=== PATIENT | female | born 1995 | race Hispanic/Latino ===

== ENCOUNTER 2018-06-21 12:13 | Emergency (ER) | payer OTHER, SELFPAY ==
[2018-06-21] MEDS ORDERED: Ibuprofen 800 MG TAB ONE (12:46)
[2018-06-21] MEDS ORDERED: Acetaminophen 500 MG TAB ONE (12:46)
[2018-06-21] MEDS ORDERED: Dexamethasone 10 MG/ML VIAL ONE (12:46)
== END 2018-06-21 12:53 | disposition home or self-care (01) ==
LOC: ERS 12:13
DX: J32.9 Chronic sinusitis, unspecified (principal); F41.9 Anxiety disorder, unspecified; F32.9 Major depressive disorder, single episode, unspecified; F17.210 Nicotine dependence, cigarettes, uncomplicated
CPT/HCPCS: 99283; J1100

== ENCOUNTER 2018-06-23 14:34 | Emergency (ER) | payer SELFPAY ==
[2018-06-23 15:14] LABS: Bilirubin Negative (Negative); Blood, Urine Negative (Negative); Clarity CLEAR (Clear); Glucose, Urine (Dipstick) Negative (Negative); Leukocyte Small (Negative); Nitrite Negative (Negative); Protein, Urine (Dipstick) Negative (Neg-Trace); Specific Gravity, Urine 1.025 (1.002-1.036); Urobilinogen 0.2 mg/dL (0.2-1.0); pH, Urine 5.5 (5.0-9.0)
[2018-06-23 15:16] LABS: Bacteria/HPF None Seen HPF (None Seen); Hyaline Casts/LPF 4-6 HYALINE CAST LPF (0-3 Hyaline); RBC/HPF 0-3 HPF (0-3)
[2018-06-23 15:17] LABS: Pregnancy Test - Urine (BHCG) Negative (Negative); Specific Gravity 1.025 (1.002-1.036)
[2018-06-23 15:18] LABS: Pregu Control Background? CLEAR/WHITE (CLR/WHITE); Pregu Control Bar Appear? YES (CONTROL BAR)
[2018-06-23 15:42] LABS: #Eosinphils 0.8 thou/uL (0.0-0.7); #Lymphocytes 2.6 thou/uL (1.20-3.40); #Monocytes 0.6 thou/uL (0.11-0.59); #Neutrophils 3.9 thou/uL (1.40-6.50); %Basophils 0.5 % (0.0-1.0); %Eosinophils 9.7 % (0.0-10.0); %Lymphocytes 32.7 % (28.0-48.0); %Monocytes 7.6 % (0.0-4.0); %Neutrophils 49.6 % (31.0-61.0); Hemoglobin 12.6 g/dL (12.0-16.0); Mean Corpuscular HGB CONC 34.1 g/dL (32.0-36.0); Mean Corpuscular Hemoglobin 32.2 pg (25.0-35.0); Mean Corpuscular Volume 94.5 fL (78.0-98.0); Platelet Count 217 thou/uL (130-400); RBC Distribution Width 12.2 % (11.5-14.5); Red Blood Cell (RBC) Count 3.92 mill/uL (4.00-5.20); White Blood Cell (WBC) Count 7.9 thou/uL (4.8-10.8)
[2018-06-23 15:59] LABS: ALT (SGPT) 9 U/L (8-55); AST (SGOT) 12 U/L (5-34); Albumin 3.9 g/dL (3.5-5.0); Alkaline Phosphatase 82 U/L (40-150); Anion Gap 11 mmol/L (10-20); BUN (Urea Nitrogen) 9 mg/dL (7.0-18.7); Bilirubin, Total 0.2 mg/dL (0.2-1.2); Calc. Creatinine Clearance 0 mL/min (70-130); Calcium 8.9 mg/dL (7.8-10.44); Carbon Dioxide 25 mmol/L (22-29); Chloride 108 mmol/L (98-107); Estimated GFR-MDRD Greater than 90; Globulin 2.8 g/dL (2.4-3.5); Glucose 65 mg/dL (70-105); Lipase 20 U/L (8-78); Potassium 3.7 mmol/L (3.5-5.1); Protein, Total 6.7 g/dL (6.0-8.3); Sodium 140 mmol/L (136-145)
[2018-06-23] MEDS ORDERED: Ondansetron HCl/PF 4 MG/2 ML Vial ONE (16:07)
[2018-06-23] MEDS ORDERED: Ketorolac Tromethamine 30 MG/ML VIAL ONE (16:07)
[2018-06-25 23:15] LABS: Chlamydia by PCR DETECTED (NotDetected); GC by PCR DETECTED (NotDetected)
== END 2018-06-23 17:40 | disposition home or self-care (01) ==
LOC: ERS 14:34
DX: N39.0 Urinary tract infection, site not specified (principal); N76.0 Acute vaginitis; F32.9 Major depressive disorder, single episode, unspecified; F41.9 Anxiety disorder, unspecified; F17.210 Nicotine dependence, cigarettes, uncomplicated
CPT/HCPCS: 36415; 80053; 81003; 81015; 81025; 83690; 85025; 87086; 87480; 87491; 87510; 87591; 87660; 96361; 96374; 96375; J1885; J2405

== ENCOUNTER → 2018-06-27 | Day surgery (SDC) | payer SELFPAY | LOC: ER/OP 16:46 | DX: A64 Unspecified sexually transmitted disease (principal); F41.9 Anxiety disorder, unspecified; F32.9 Major depressive disorder, single episode, unspecified; F17.210 Nicotine dependence, cigarettes, uncomplicated; Z88.0 Allergy status to penicillin; Z91.018 Allergy to other foods ==

== ENCOUNTER 2018-07-02 08:08 | Emergency (ER) | payer SELFPAY ==
[2018-07-02] MEDS ORDERED: cefTRIAXone\\ROCEPHIN 250 MG VIAL ONE (09:29)
[2018-07-02] MEDS ORDERED: Azithromycin 250 MG TAB ONE (09:29)
[2018-07-02] MEDS ORDERED: Lidocaine 1% (PF) 30 ML VIAL ONE (09:44)
== END 2018-07-02 10:30 | disposition home or self-care (01) ==
LOC: ERS 08:08
DX: R10.13 Epigastric pain (principal); T37.0X5A Adverse effect of sulfonamides, initial encounter; F41.9 Anxiety disorder, unspecified; F32.9 Major depressive disorder, single episode, unspecified; F17.210 Nicotine dependence, cigarettes, uncomplicated; Z79.899 Other long term (current) drug therapy
CPT/HCPCS: 93005; 96372; J0696; J2001

== ENCOUNTER 2019-05-03 18:00 | Inpatient (IN) | payer OTHER ==
[~2019-05-03 18:00] MED LIST: Bupivacaine 0.25% HCL 30 ML VIAL ONE
[2019-05-03 19:49] VITALS: BMI 46.2
[2019-05-03] MEDS ORDERED: hydrALAZINE 20 MG/ML VIAL SLOW IVP PRN (20:37)
[2019-05-03] MEDS ORDERED: Ondansetron PF 4 MG/2 ML Vial IVP PRN (20:37)
[2019-05-03] MEDS ORDERED: Promethazine HCl 25 MG/ML VIAL IM PRN (20:37)
[2019-05-03] MEDS: Lactated Ringer's 1,000 ML IV SCH (21:20)
[2019-05-03 21:34] LABS: Hemoglobin 13.6 g/dL (12.0-16.0); Mean Corpuscular Hemoglobin 33.2 pg (27.0-31.0); Mean Corpuscular Volume 92.2 fL (78.0-98.0); Mean Platelet Volume 7.9 fL (7.4-10.4); Platelet Count 226 thou/uL (130-400); RBC Distribution Width 11.7 % (11.5-14.5); Red Blood Cell (RBC) Count 4.09 mill/uL (4.20-5.40); White Blood Cell (WBC) Count 10.4 thou/uL (4.8-10.8)
[2019-05-03] MEDS: Misoprostol 100 MCG TAB VAG SCH (21:47)
[2019-05-03 22:21] LABS: Syphilis Antibody Nonreactive (Nonreactive); Syphilis Antibody Index 0.05 S/CO (<1.00 Non-Reactive)
--- NOTE | 2019-05-03 22:35 | PDOC.LDPN ---
Addendum - Attending - Attending Attestation Date/Time: 05/03/19 7241 I personally evaluated the patient and discussed the management with Dr. Benson. Her H&P is pending. I agree with the History, Examination, Assessment and Plan as dsicussed with any addition or exceptions noted below.
--- NOTE | 2019-05-03 22:52 | PDOC.FPRHP ---
- Allergies/Adverse Reactions Allergies Allergy/AdvReac Type Severity Reaction Status Date / Time amoxicillin Allergy Mild Hives Verified 05/03/19 19:42 - Home Medications Medication Instructions Recorded Confirmed Type Aspirin [Adult Low Dose Aspirin EC] 1 tablet PO DAILY 05/03/19 05/03/19 History Enoxaparin Sodium [Lovenox] 40 mg SC DAILY 05/03/19 05/03/19 History - History PMHx: PSHx: FHx: Social: - Vital signs BP: [] HR: [] RR: [] Tmax: [] Pox: []% on [] Wt: [] FMR H&P: Results - Labs Result Diagrams: 05/03/19 21: Lab results: WBC 10.4 thou/uL (4.8-10.8) 05/03/19 21:23 Hgb 13.6 g/dL (12.0-16.0) 05/03/19 21:23 Hct 37.7 % (36.0-47.0) 05/03/19 21:23 MCV 92.2 fL (78.0-98.0) 05/03/19 21:23 Plt Count 226 thou/uL (130-400) 05/03/19 21:23 FMR H&P: Upper Level - Plan Date/Time: 05/03/192251 I, [], have evaluated this patient and agree with findings/plan as outlined by validation intern resident. Pertinent changes/additions are listed here.
[2019-05-03 22:53] LABS: Hep B Surf Ag Non-Reactive S/CO (NonReactive)
--- NOTE | 2019-05-03 23:03 | PDOC.FPROB ---
FMR OB H&P: HPI - History of Present Illness Chief Complaint: IOL History of Present Illness: Nunu Polk is a 23 year old F @ 38.0 wks by 7.1 wk sono with CLAUDIA of 05/17/19 who presents to L&D for cytotec IOL for high risk 2/2 antiphospholipid syndrome. Patient has a history of HSV infection during this , which has been prophylactically treated with acyclovir starting in week 36. She denies any active lesions during . She has a history of chlamydia infection which has been treated and she has had a negative ROXANNE on 04/23. She has been followed by [facility] this and has routinely been getting BPP and NST's. Last was on 04/29/19. NST was reactive. BPP was 04/29. US showed cephalic presentation, ROSARIO of 7.19, anterior-fundal placenta, no previa. Patient has been taking lovenox 40 daily during per [facility] recs , who also recommend that she continues lovenox starting 6 hours after vaginal delivery. She has not taken lovenox 2 days leading up to induction per [facility] recs. She also has a history of THC use during but stopped during the 2nd trimester. Primary Care Physician: Artem/Brayan FMR OB H&P: Current - Care : 2 Para: 1 Gestational age: 38 wks Due date: 05/17/19 Dating Criteria: 7.1 wk sono Total weight gain: 25 lb Course/Complications: see HPI - OB Labs Blood type: A RH: positive Antibody Screen: negative HIV: negative RPR: negative HepBsAg: negative Rubella: immune Urine drug screen: not done Gonorrhea: negative Chlamydia: negative Pap Smear: 22 yr old-normal 1 hour gtt: 61 A1c: 4.7 GBS: negative H&H: 12.5/35.2 FMR OB H&P: History - Past Medical History PMH: Antiphospholipid syndrome Maternal Obesity Hx of HSV Hx of Chlamydia ROXANNE neg on 04/23/19 THC use in -quit in 2nd trimester - OB History OB History: first resulted in 26 wk stillbirth, autopsy showed acute retroplacental hematoma 50% - [employer] History [employer] History: LMP 08/01/18 periods in past have been normal, lasting 5 days, regular - Surgical History Sx History: tympanostomy R ear - Social History Social History: In stable relationship with boyfriend, not employed, lives with bf and family member - Family History Family History: HTN, HLD, DM2 FMR OB H&P: Medications - Current Home Medications: Medication Instructions Recorded Confirmed Type Aspirin [Adult Low Dose Aspirin EC] 1 tablet PO DAILY 05/03/19 05/03/19 History Enoxaparin Sodium [Lovenox] 40 mg SC DAILY 05/03/19 05/03/19 History Acyclovir 400 mg PO TID 05/04/19 05/04/19 History Vit 93/Iron Fum/Folic 1 tab PO DAILY 05/04/19 05/04/19 History [ Formula Tablet] Sertraline HCl [Zoloft] 25 mg PO DAILY 05/04/19 05/04/19 History Allergies/Adverse Reactions: Allergies Allergy/AdvReac Type Severity Reaction Status Date / Time amoxicillin Allergy Mild Hives Verified 05/03/19 19:42 FMR OB H&P: ROS - Review of Systems General: denies: fever/chills, weight/appetite/sleep changes, night sweats Eyes: denies: eye pain, vision changes ENT: denies: nasal congestion, rhinorrhea Cardiovascular: reports: edema. denies: chest pain, palpitation Respiratory: denies: cough, shortness of breath Gastrointestinal: denies: abdominal pain, cramping, nausea, vomiting Genitourinary (Female): denies: incontinence, dysuria, polyuria, vaginal discharge, vaginal pain, vaginal bleeding Musculoskeletal: denies: pain, stiffness, tenderness Neurologic: denies: numbness, syncope, seizures, weakness Integumentary: reports: itching Breast: denies: bumps, masses, skin changes Endocrine: denies: cold intolerance, polydipsia, polyuria Psychological: reports: depression, anxiety FMR OB H&P: Vital Signs - Maternal Vital signs: Vital Signs - First Documented Temp Pulse Resp BP 98.2 F 117 H 18 118/61 05/03/19 19:39 05/03/19 19:39 05/03/19 19:39 05/03/19 19:39 - Heart Tones Baseline: 135 Variability: moderate Acceleration: absent Deceleration: absent Category: category 1 FMR OB H&P: Physical Exam - Physical Exam General: NAD, awake, alert and oriented HEENT: normocephalic and atraumatic, EOMI, MMM Neck: supple, FROM Chest: non-tender to palpation, no lesions Heart: RRR, normal S1/S2, no murmurs/rubs/gallops General: CTAB, no respiratory distress, good air movement, no rales/rhonchi Abdomen: soft, gravid, non-tender Musculoskeletal: pulses present, FROM in all four extremities Neurological: cranial nerves II through XII intact, sensation to pain,touch and proprioception grossly normal Skin: good tugor, capillary refill <2 seconds Lymphatic: no unusual bruising or bleeding, no purpura, no petechia Psychiatric: intact recent and remote memory, good judgement and insight, normal mood and affect FMR OB H&P: Results - Labs Lab results: Laboratory Results - last 24 hr 05/03/19 05/03/19 05/03/19 21:23 21:23 21:23 WBC 10.4 RBC 4.09 L Hgb 13.6 Hct 37.7 MCV 92.2 MCH 33.2 H MCHC 36.0 RDW 11.7 Plt Count 226 MPV 7.9 Syphilis IgG/IgM Ab Nonreactive Blood Type O POSITIVE Antibody Screen NEGATIVE FMR OB H&P: A/P - Problem List (1) Intrauterine Current Visit: Yes Status: Acute Code(s): Z34.90 - ENCNTR FOR SUPRVSN OF NORMAL , UNSP, UNSP TRIMESTER (2) Antiphospholipid antibody syndrome complicating Current Visit: Yes Status: Acute Code(s): O99.119 - OTH DIS OF BLD/BLD-FORM ORG/IMMUN MECHNSM COMP PREG,UNSP TRI; D68.61 - ANTIPHOSPHOLIPID SYNDROME (3) hsv1 in Current Visit: Yes Status: Acute (4) Chlamydia infection affecting in first trimester Current Visit: Yes Status: Acute Code(s): O98.811 - OTH MATERNAL INFEC/ PARASTC DISEASES COMP PREG, FIRST TRI; A74.9 - CHLAMYDIAL INFECTION, UNSPECIFIED (5) thc use in Current Visit: Yes Status: Acute (6) Maternal obesity affecting , antepartum Current Visit: Yes Status: Acute Code(s): O99.210 - OBESITY COMPLICATING , UNSPECIFIED TRIMESTER (7) History of stillbirth Current Visit: Yes Status: Acute Code(s): Z87.59 - PERSONAL HISTORY OF COMP OF PREG, CHLDBRTH AND THE PUERP Disposition: 1) IUP: high risk - cytotec IOL for antiphospholipid syndrome - initial check was 3 - cytotec started at 2147 - pt does not desire epidural at this time - OB labs as above 2) Antiphospholipid Syndrome affecting - high risk , followed by [facility] - has taken lovenox and ASA during - held lovenox 2 days prior to induction per [facility] recs - recs to continue lovenox 6 hr if vaginal delivery per [facility] 3) Hx of Chlamydia in - ROXANNE negative on 04/23/19 4) Hx of HSV1 during - prophylactically treated with acyclovir starting at 36 wks - no active lesions 5) THC use - stopped using in 2nd trimester 6) Maternal obesity - weight gain of 25 lbs during this 7) hx of stillbirth in first - at 26 wks, autopsy as above Dispo: Will initiate cytotec IOL with q4h checks Discussion: Date/Time: 05/03/19 3291 This H&P was discussed with [] and [] who agree with the above documentation and plan. Addendum - Attending - Attending Attestation Date/Time: 05/04/19 8681 I personally evaluated the patient and discussed the management with Dr. Benson at time of admission last night. See separate note. I agree with the History, Examination, Assessment and Plan documented above with any addition or exceptions noted below.
--- NOTE | 2019-05-04 02:28 | PDOC.LDPN ---
Labor & Delivery Progress Note - Subjective Subjective: comfortable, painful contractions (reports she can feel them, but also is sleeping through them) - Objective Vital signs reviewed and normal: yes General: resting Uterine fundus: non tender SVE: @ 0140 2 FHT: category 1 [place] contractions every: 2min - Assessment (1) Intrauterine Code(s): Z34.90 - ENCNTR FOR SUPRVSN OF NORMAL , UNSP, UNSP TRIMESTER Current Visit: Yes Status: Acute (2) Antiphospholipid antibody syndrome complicating Code(s): O99.119 - OTH DIS OF BLD/BLD-FORM ORG/IMMUN MECHNSM COMP PREG,UNSP TRI ; D68.61 - ANTIPHOSPHOLIPID SYNDROME Current Visit: Yes Status: Acute (3) hsv1 in Current Visit: Yes Status: Acute (4) Chlamydia infection affecting in first trimester Code(s): O98.811 - OTH MATERNAL INFEC/PARASTC DISEASES COMP PREG, FIRST TRI; A74.9 - CHLAMYDIAL INFECTION, UNSPECIFIED Current Visit: Yes Status: Acute (5) thc use in Current Visit: Yes Status: Acute (6) Maternal obesity affecting , antepartum Code(s): O99.210 - OBESITY COMPLICATING , UNSPECIFIED TRIMESTER Current Visit: Yes Status: Acute (7) History of stillbirth Code(s): Z87.59 - PERSONAL HISTORY OF COMP OF PREG, CHLDBRTH AND THE PUERP Current Visit: Yes Status: Acute -: 1) IUP: high risk - cytotec IOL for antiphospholipid syndrome - initial check was 3 - cytotec started at 2147 - pt does not desire epidural at this time - recheck at 0140 was 2 - Cat 1 Strip 2) Antiphospholipid Syndrome affecting - high risk , followed by [facility] - has taken lovenox and ASA during - held lovenox 2 days prior to induction per [facility] recs - recs to continue lovenox 6 hr if vaginal delivery per [facility] 3) Hx of Chlamydia in - ROXANNE negative on 04/23/19 4) Hx of HSV1 during - prophylactically treated with acyclovir starting at 36 wks - no active lesions 5) THC use - stopped using in 2nd trimester 6) Maternal obesity - weight gain of 25 lbs during this 7) hx of stillbirth in first - at 26 wks, autopsy as above Dispo: Raj every 2 minutes; will hold cytotec for now and recheck in 4 hours
--- NOTE | 2019-05-04 06:26 | PDOC.LDPN ---
Labor & Delivery Progress Note - Subjective Subjective: comfortable, painful contractions - Objective Vital signs reviewed and normal: yes General: resting, breathing through contractions Uterine fundus: non tender SVE: /-2 FHT: category 1 [place] contractions every: 2-5min - Assessment (1) Intrauterine Code(s): Z34.90 - ENCNTR FOR SUPRVSN OF NORMAL , UNSP, UNSP TRIMESTER Current Visit: Yes Status: Acute (2) Antiphospholipid antibody syndrome complicating Code(s): O99.119 - OTH DIS OF BLD/BLD-FORM ORG/IMMUN MECHNSM COMP PREG,UNSP TRI ; D68.61 - ANTIPHOSPHOLIPID SYNDROME Current Visit: Yes Status: Acute (3) hsv1 in Current Visit: Yes Status: Acute (4) Chlamydia infection affecting in first trimester Code(s): O98.811 - OTH MATERNAL INFEC/PARASTC DISEASES COMP PREG, FIRST TRI; A74.9 - CHLAMYDIAL INFECTION, UNSPECIFIED Current Visit: Yes Status: Acute (5) thc use in Current Visit: Yes Status: Acute (6) Maternal obesity affecting , antepartum Code(s): O99.210 - OBESITY COMPLICATING , UNSPECIFIED TRIMESTER Current Visit: Yes Status: Acute (7) History of stillbirth Code(s): Z87.59 - PERSONAL HISTORY OF COMP OF PREG, CHLDBRTH AND THE PUERP Current Visit: Yes Status: Acute -: 1) IUP: high risk - cytotec IOL for antiphospholipid syndrome - patient does not desire an epidural at this time - initial check was -3 - cytotec started at 2147 - recheck at 0140 was /-2 - recheck at 0620 was /-2 - contractions every 2-5min - another cytotec ordered - Cat 1 Strip 2) Antiphospholipid Syndrome affecting - high risk , followed by [facility] - has taken lovenox and ASA during - held lovenox 2 days prior to induction per [facility] recs - recs to continue lovenox 6 hr if vaginal delivery per [facility] 3) Hx of Chlamydia in - ROXANNE negative on 04/23/19 4) Hx of HSV1 during - prophylactically treated with acyclovir starting at 36 wks - no active lesions 5) THC use - stopped using in 2nd trimester 6) Maternal obesity - weight gain of 25 lbs during this 7) hx of stillbirth in first - at 26 wks, autopsy as above Dispo: Raj every 2-5 minutes; 2nd cytotec dose and will recheck in 4 hours
[2019-05-04] MEDS: Misoprostol 100 MCG TAB VAG SCH ×3 (06:38→15:40)
[2019-05-04] MEDS ORDERED: Misoprostol 100 MCG TAB ONE (11:10)
[2019-05-04] MEDS ORDERED: Butorphanol Tartrate 1 MG/ML VIAL SLOW IVP PRN (11:27)
--- NOTE | 2019-05-04 11:33 | PDOC.LDPN ---
Labor & Delivery Progress Note - Subjective Subjective: comfortable, other (feeling some ctx) - Objective Vital signs reviewed and normal: yes General: NAD Uterine fundus: non tender SVE: No lesions concerning for active herpes infection Dilation: 1, unchanged FHT: category 1, acceleration absent [place] contractions every: 3-4 Other exam findings: Membranes intact. Plan: continue plan of care, other (cytotec 25 placed. Continue induction.) Addendum - Attending - Attending Attestation Date/Time: 05/04/19 9825 I personally evaluated the patient and discussed the management with Dr. Robbins I agree with the History, Examination, Assessment and Plan documented above with any addition or exceptions noted below. 23 yo female at 38.0 wks by 7.1 wk sono admitted for IOL 2/2 APLS and hx of stillbirth Patient doing well. Cat 1 tracing. Cervix still unfavorable on exam. Miso placed. 1. sIUP: IOB/anatomy/2T/3T reviewed. GBS negative. 2. APLS: Confirmed by 2 serology testing and Obstetrical event. No personal VTEs. Has been on ppx anticoagulation during and antiplatelet for prevention. Risk for preE. Monitor closely. Restart ppx after delivery for 6 wks. Follow up out patient with heme. 3. BMI 46: Lifestyle modifications. 4. hx of stillbirth: HSV1 in placenta path. Clots noted in placenta and cord per patient. Unable to review path. 5. hx of HSV1: Patient unsure of location of outbreak. On ppx. Low likelihood of genital recurrence but due to history caution used. Negative speculum exam for suspicious lesions. 6. HDS: No active infection 7. hx of MMD on SSRI: Monitor for complications. Monitor for progressive ppd. 8. hx of CT this : Asymptomatic. Treated. ROXANNE negative. PPX after delivery. 9. THC use in 1T: UDS on mom not obtained. Will monitor infant. Denies use since 1T which was during a period she did not know she was . 10. PCN allergy Continue current care. Rhoda
[2019-05-04] MEDS: Lactated Ringer's 1,000 ML IV SCH ×3 (11:58→23:05)
[2019-05-04] MEDS ORDERED: NS / Oxytocin 40 units/1000ml 1,000 ML IV PRN (20:40)
[2019-05-04] MEDS ORDERED: Lidocaine 1% (PF) 30 ML VIAL SC PRN (20:40)
[2019-05-04] MEDS ORDERED: NS w/ Oxytocin 10 units 500 ML IV SCH ×2 (20:45)
--- NOTE | 2019-05-04 20:46 | PDOC.LDPN ---
Labor & Delivery Progress Note - Subjective Subjective: comfortable - Objective Vital signs reviewed and normal: yes General: NAD Dilation: 3 Effacement: 50% Station: -2 FHT: category 1 [place] contractions every: irregular Procedures: balloon placed for mechanical dilation - Assessment (1) Third trimester Code(s): Z34.93 - ENCNTR FOR SUPRVSN OF NORMAL PREG, UNSP, THIRD TRIMESTER Status: Acute (2) Antiphospholipid antibody syndrome complicating Code(s): O99.119 - OTH DIS OF BLD/BLD-FORM ORG/IMMUN MECHNSM COMP PREG,UNSP TRI ; D68.61 - ANTIPHOSPHOLIPID SYNDROME Status: Acute (3) Chlamydia infection affecting in first trimester Code(s): O98.811 - OTH MATERNAL INFEC/PARASTC DISEASES COMP PREG, FIRST TRI; A74.9 - CHLAMYDIAL INFECTION, UNSPECIFIED Status: Acute (4) History of stillbirth Code(s): Z87.59 - PERSONAL HISTORY OF COMP OF PREG, CHLDBRTH AND THE PUERP Status: Acute (5) Intrauterine Code(s): Z34.90 - ENCNTR FOR SUPRVSN OF NORMAL , UNSP, UNSP TRIMESTER Status: Acute (6) Maternal obesity affecting , antepartum Code(s): O99.210 - OBESITY COMPLICATING , UNSPECIFIED TRIMESTER Status: Acute (7) hsv1 in Status: Acute (8) thc use in Status: Acute -: 23 yo @38wks admitted for IOL 2/2 APS. #sIUP, third trimester #APS #hx of chlamydia, ROXANNE neg #THC use in #obesity #hx of HSV, no active lesions #hx of stillbirth -Balloon placed. Will start pitocin in 1-2 hours pending toleration of balloon. -cervical check q4h pending strip MD Aditi, PGY-3 Addendum - Attending - Attending Attestation Date/Time: 05/04/192058 I personally evaluated the patient and discussed the management with Dr. Valentine I agree with the History, Examination, Assessment and Plan documented above with any addition or exceptions noted below. 23 yo female at 38.0 wks by 7.1 wk sono admitted for IOL 2/2 APLS and hx of stillbirth Patient doing well. Cat 1 tracing. Cervix still unfavorable. s/p miso x4. Balloon placed. Will add pitocin. 1. sIUP: IOB/anatomy/2T/3T reviewed. GBS negative. 2. APLS: Confirmed by 2 serology testing and Obstetrical event. No personal VTEs. Has been on ppx anticoagulation during and antiplatelet for prevention. Risk for preE. Monitor closely. Restart ppx after delivery for 6 wks. Follow up out patient with heme. 3. BMI 46: Lifestyle modifications. 4. hx of stillbirth: HSV1 in placenta path. Clots noted in placenta and cord per patient. Unable to review path. 5. hx of HSV1: Patient unsure of location of outbreak. On ppx. Low likelihood of genital recurrence but due to history caution used. Negative speculum exam for suspicious lesions. 6. HDS: No active infection 7. hx of MMD on SSRI: Monitor for complications. Monitor for progressive ppd. 8. hx of CT this : Asymptomatic. Treated. ROXANNE negative. PPX infant after delivery. 9. THC use in 1T: UDS on mom not obtained. Will monitor . Denies use since 1T which was during a period she did not know she was . 10. PCN allergy Continue current care. Rhoda
[2019-05-04] MEDS ORDERED: Fentanyl 4 mcg/Bup 0.1% Cadd 100 ML ONE (21:46)
[2019-05-04] MEDS ORDERED: diphenhydrAMINE 50 MG/ML VIAL IVP PRN (22:32)
[2019-05-04] MEDS ORDERED: Naloxone HCl 0.4 mg/ml Vial IVP PRN ×2 (22:32)
[2019-05-04] MEDS ORDERED: ePHEDrine/0.9% NaCl/PF SYRINGE 50 mg/10 ml SLOW IVP PRN (22:32)
[2019-05-04] MEDS ORDERED: Promethazine HCl 25 MG/ML VIAL IM PRN (22:32)
[2019-05-04] MEDS ORDERED: Ondansetron PF 4 MG/2 ML Vial IVP PRN (22:32)
[2019-05-04] MEDS ORDERED: Lactated Ringer's 500 ML IV PRN (22:32)
[2019-05-04] MEDS ORDERED: Fentanyl 4 mcg/Bupivacaine 0.1% Cassette 100 ML EPIDURAL SCH (22:45)
[2019-05-04] MEDS ORDERED: Communication Order-Pharmacy FS SCH (22:45)
--- NOTE | 2019-05-05 03:44 | PDOC.LDPN ---
Labor & Delivery Progress Note - Subjective Subjective: comfortable, no concerns - Objective Vital signs reviewed and normal: yes General: NAD Dilation: 6 Effacement: 90% Station: -1 FHT: category 2 (late decelerations resolved with maternal repositioning, 1 episode of bradycarida- recovered), variable decelerations, late decelerations, variability present IUPC placed: yes FSE placed: yes Resuscitative measures: maternal oxygen, maternal IV fluids, maternal position change - Assessment (1) Antiphospholipid antibody syndrome complicating Code(s): O99.119 - OTH DIS OF BLD/BLD-FORM ORG/IMMUN MECHNSM COMP PREG,UNSP TRI ; D68.61 - ANTIPHOSPHOLIPID SYNDROME Current Visit: Yes Status: Acute (2) Intrauterine Code(s): Z34.90 - ENCNTR FOR SUPRVSN OF NORMAL , UNSP, UNSP TRIMESTER Current Visit: Yes Status: Acute -: Antiphospholipid complicated Plan of care: continue to monitor, hold pitocin for now due to Cat II strip, position change, fluid resuscitation
--- NOTE | 2019-05-05 03:59 | PDOC.FM ---
- Objective Vital Signs & Weight: Weight Weight 126.099 kg Result Diagrams: 05/03/19 21:23 Dx/Plan (1) Intrauterine Code(s): Z34.90 - ENCNTR FOR SUPRVSN OF NORMAL , UNSP, UNSP TRIMESTER Status: Acute (2) Antiphospholipid antibody syndrome complicating Code(s): O99.119 - OTH DIS OF BLD/BLD-FORM ORG/IMMUN MECHNSM COMP PREG,UNSP TRI ; D68.61 - ANTIPHOSPHOLIPID SYNDROME Status: Acute (3) hsv1 in Status: Acute (4) Chlamydia infection affecting in first trimester Code(s): O98.811 - OTH MATERNAL INFEC/PARASTC DISEASES COMP PREG, FIRST TRI; A74.9 - CHLAMYDIAL INFECTION, UNSPECIFIED Status: Acute (5) thc use in Status: Acute (6) Maternal obesity affecting , antepartum Code(s): O99.210 - OBESITY COMPLICATING , UNSPECIFIED TRIMESTER Status: Acute (7) History of stillbirth Code(s): Z87.59 - PERSONAL HISTORY OF COMP OF PREG, CHLDBRTH AND THE PUERP Status: Acute Addendum - Attending - Attending Attestation Date/Time: 05/05/19 0359 Reviewed FHT/[place] tracing. Cat 1 until about 0230 this morning when became Cat 2 then recovered to Cat 1. Pitocin hs been started/stopped twice during the past 90 minutes for Cat 2 tracing. Position changes and fluid bolus measures taken. Discussed fidnigns with patient as well as care plan depending on FHT tracing. If FHT recovers to Cat 1 then can see how she progresses and restart pit if needed. If FHT persist as Cat 2 then need to consider delivery. Discussed risks/benefits/indications/alternatives for delivery. She agreeable to if indicated. Nunu and her mother appreciate their care and communication.
[2019-05-05] MEDS: Lactated Ringer's 1,000 ML IV SCH (04:03)
--- NOTE | 2019-05-05 05:31 | PDOC.OPDEL ---
OB Operative/Delivery Note Delivery Dr/Surgeon: Brayan Zavala Assist: Attending: Dr. Bui Pre-Delivery Diagnosis: medically indicated induction (APS) Procedure/Post Delivery Dx: spontaneous vaginal delivery Weeks gestation: 38 Anesthesia: epidural - Findings B Sex: female - 1 min: 8 - 5 min: 9 - Additional Findings/Plan Placenta delivered: spontaneous Repaired Obstetrical Laceration: none Estimated blood loss: 250 Compilations/Other Findings: Delivering Physician: Dr. Serge Mcgill MD, PGY-[address] Opal Schmidt DO, PGY -3 Attending: Dr. Bui Procedure: Spontaneous Vaginal Delivery Anesthesia: epidural, Local for Repair QBL:222ml Pre-op Diagnosis: 1. Term intrauterine 2. Hx of HSV 3. APS 4. Hx of chlamydia 5. Hx of THC use in 1T 6. Obesity 7 Hx of demise Post-op Diagnosis: 1. Term intrauterine , delivered 2. Hx of HSV 3. APS 4. Hx of chlamydia 5. Hx of THC use in 1T 6. Obesity 7. Hx of demise Indications: A 23y/o female @38.2wks presents to L&D for induction due to APS. Delivery Note: This is 23 yo @38.2wks who delivered a viable F infant at 0505. Following an uneventful antepartum course, a vigorous female was delivered over an intact perineum in the occipitoanterior position. Anterior Shoulder and then remainder of the body delivered. No nuchal cord. Terminal meconium present. The head was held down and mouth and nares were bulb suctioned. Cord clamped (after delayed cord clamping) and cut and cord blood collected. Placenta delivered intact (in the [place] presentation) with a 3 vessel cord noted. Fundal massage was performed and the fundus was firm. The cervix and vagina were inspected and found to be free of lacerations. Infant went to nursery in good condition for routine care. Apgars were 8/9 at 1 & 5 minutes, respectively. Patient tolerated delivery well and went to after routine recovery/care. Addendum - Attending - Attending Attestation Date/Time: 05/05/191923 I personally supervised and assisted with the delivery.
[2019-05-05] MEDS ORDERED: Lanolin Ointment 7 GM TUBE TOP PRN (08:28)
[2019-05-05] MEDS ORDERED: Benzocaine-Menthol 82.5 ML CAN TOP PRN (08:28)
[2019-05-05] MEDS ORDERED: Misoprostol 200 MCG TAB VAG PRN (08:28)
[2019-05-05] MEDS ORDERED: diphenhydrAMINE 25 MG CAP PO PRN (08:28)
[2019-05-05] MEDS ORDERED: Bisacodyl 10 MG SUPP PR PRN (08:28)
[2019-05-05] MEDS ORDERED: Preparation H Ointment 28 GM TUBE PR PRN (08:28)
[2019-05-05] MEDS ORDERED: Ibuprofen 800 MG TAB PO SCH (08:28)
[2019-05-05] MEDS ORDERED: Adacel (T-DAP) 0.5 ML SYRINGE IM ONE (08:28)
[2019-05-05] MEDS ORDERED: Milk Of Magnesia 30 ML UDCUP PO PRN (08:28)
[2019-05-05] MEDS ORDERED: NS / Oxytocin 40 units/1000ml 1,000 ML IV SCH (08:28)
[2019-05-05] MEDS ORDERED: hydrALAZINE 20 MG/ML VIAL SLOW IVP PRN (08:28)
[2019-05-05] MEDS: Misoprostol 100 MCG TAB VAG SCH (08:33)
[2019-05-05] MEDS ORDERED: Ferrous Sulfate 325 MG TAB PO SCH (08:45)
[2019-05-05] MEDS: Docusate Calcium (SURFAK) 240 MG CAP PO SCH ×2 (08:56→21:21)
[2019-05-05] MEDS: Prenatal Vitamin 1 TAB PO SCH (08:56)
[2019-05-05] MEDS ORDERED: Prenatal Vitamin 1 TAB PO SCH (09:00)
[2019-05-05] MEDS: Enoxaparin Sodium 40 MG/0.4 ML SYRINGE SC SCH (10:45)
[2019-05-05] MEDS: Ferrous Sulfate 325 MG TAB PO SCH (17:06)
[2019-05-05] MEDS: Ibuprofen 800 MG TAB PO SCH (17:12)
[2019-05-05] MEDS ORDERED: HYDROcodone/Acetaminophen 10/325 mg Tablet PO SCH (20:47)
[2019-05-06] MEDS ORDERED: diphenhydrAMINE 50 MG/ML VIAL IVP SCH (01:15)
[2019-05-06] MEDS ORDERED: Metoclopramide HCl 10 MG/2 ML VIAL IVP SCH (01:15)
[2019-05-06] MEDS ORDERED: diphenhydrAMINE 25 MG CAP PO PRN (01:18)
[2019-05-06] MEDS: Ibuprofen 800 MG TAB PO SCH ×3 (01:38→16:50)
[2019-05-06] MEDS ORDERED: Metoclopramide HCl 10 MG TAB PO SCH (01:45)
[2019-05-06 04:28] LABS: #Eosinphils 0.4 thou/uL (0.0-0.7); #Lymphocytes 3.6 thou/uL (1.20-3.40); #Monocytes 0.6 thou/uL (0.11-0.59); #Neutrophils 7.5 thou/uL (1.40-6.50); %Basophils 0.2 % (0.0-1.0); %Eosinophils 3.1 % (0.0-10.0); %Lymphocytes 29.9 % (21.0-51.0); %Monocytes 4.9 % (0.0-10.0); %Neutrophils 61.9 % (42.0-75.0); Mean Corpuscular HGB CONC 35.1 g/dL (32.0-36.0); Mean Corpuscular Hemoglobin 32.8 pg (27.0-31.0); Mean Corpuscular Volume 93.3 fL (78.0-98.0); Mean Platelet Volume 7.2 fL (7.4-10.4); Platelet Count 169 thou/uL (130-400); RBC Distribution Width 11.7 % (11.5-14.5); Red Blood Cell (RBC) Count 3.37 mill/uL (4.20-5.40); White Blood Cell (WBC) Count 12.1 thou/uL (4.8-10.8)
[2019-05-06] MEDS ORDERED: Sodium Chloride 0.9% 10 ML ONE (05:34)
[2019-05-06] MEDS ORDERED: Sodium Chloride 0.9% 500 ML IV SCH (06:15)
[2019-05-06] MEDS ORDERED: HYDROcodone/Acetaminophen 5/325 mg Tablet PO SCH (06:15)
--- NOTE | 2019-05-06 09:01 | PDOC.PP ---
Post Progress Note Post Day #: 1 Subjective: Complaining overnight and currently of severe headache which is not relieved w/ motrin and gets better w/ laying flat. She is currently in the dark, which is helping. Denies vision changes. +neck stiffness. PO intake tolerated: yes Flatus: yes Ambulation: yes Vital Signs (12 hours) Temp Pulse Resp BP Pulse Ox 05/06/19 08:26 98.1 F 61 16 103/56 L 100 05/06/19 04:30 97.5 F L 83 20 100/58 L 05/06/19 00:10 97.6 F 67 20 123/84 05/05/19 21:45 62 16 111/64 96 Weight Weight 126.099 kg - Physical Examination Deviation from normal: appears and talks w/ soft, tired voice. Cardiovascular: no m/r/g, RRR Respiratory: clear to auscultation bilaterally Abdominal: + bowel sounds, lochia (downtrending.), no distention, appropriately TTP Fundus firm & at: below umbilicus Psychiatric: A&Ox3, normal affect Result Diagrams: 05/06/19 04:15 Additional Labs: Post Labs Blood Type O POSITIVE 05/03/19 21:23 Hep Bs Antigen Non-Reactive S/CO (NonReactive) 05/03/19 21:23 (1) state Code(s): Z39.2 - ENCOUNTER FOR ROUTINE FOLLOW-UP Status: Acute (2) Antiphospholipid antibody syndrome complicating Code(s): O99.119 - OTH DIS OF BLD/BLD-FORM ORG/IMMUN MECHNSM COMP PREG,UNSP TRI ; D68.61 - ANTIPHOSPHOLIPID SYNDROME Status: Acute (3) History of stillbirth Code(s): Z87.59 - PERSONAL HISTORY OF COMP OF PREG, CHLDBRTH AND THE PUERP Status: Acute (4) hsv1 in Status: Acute (5) thc use in Status: Acute - Assessment/Plan 23-yo G2 now P1101 on floor: - state s/p on 05/05 at 0505 * PPD #1, afebrile, low BP of 100/58 * PP Hgb 11.0 * Appropriate WBC * Minimal attempts to breastfeed, consult placed. Junction taking mostly bottle feeds. * Continue routine cares - Severe headache * Headache monitoring, continue pain management. No Pre-E symptoms, BP not elevated * Anesthesia to evaluate for spinal headache, possible blood patch. Appreciate recs. 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 Dispo: continue to monitor on . Likely d/c tomorrow, pending TBili @ 36 hours. Ann Robbins MD PGY1 Addendum - Attending - Attending Attestation Date/Time: 05/06/19 1302 I personally evaluated the patient and discussed the management with Dr. Robbins I agree with the History, Examination, Assessment and Plan documented above with any addition or exceptions noted below. 23 yo now female s/p on 05/05/19 at 0505 PPD#1 Doing well. However has spinal headache. Improves with positioning. No blood patch at this time. Breast feeding. Lochia appropriate. VS, labs reviewed. Agree with resident PE Funds firm. NT. Below umbilicus 1. s/p : Continue routine care. 2. APLS: Confirmed by 2 serology testing and Obstetrical event. No personal VTEs. Has been on ppx anticoagulation during and antiplatelet for prevention. Risk for preE. Monitor closely. Lovenox restarted. Would consider trending antiXa levels due to morbid obesity. Continue for 6 wks. Follow up out patient with heme. 3. BMI 46: Lifestyle modifications. 4. hx of stillbirth: HSV1 in placenta path. Clots noted in placenta and cord per patient. Unable to review path. 5. hx of HSV1: Patient unsure of location of outbreak. On ppx. Low likelihood of genital recurrence but due to history caution used. Negative speculum exam for suspicious lesions. 6. HDS: No active infection 7. hx of MMD on SSRI: Monitor for complications. Monitor for progressive ppd. Currently stable. Breast feeding. 8. hx of CT this : Asymptomatic. Treated. ROXANNE negative. PPX after delivery. 9. THC use in 1T: UDS on mom not obtained. Will monitor infant. Denies use since 1T which was during a period she did not know she was . 10. PCN allergy Continue current care. Rhoda
[2019-05-06] MEDS: Ferrous Sulfate 325 MG TAB PO SCH ×2 (09:25→17:11)
[2019-05-06] MEDS: Docusate Calcium (SURFAK) 240 MG CAP PO SCH ×2 (09:26→20:34)
[2019-05-06] MEDS: Prenatal Vitamin 1 TAB PO SCH (09:26)
[2019-05-06] MEDS: Enoxaparin Sodium 40 MG/0.4 ML SYRINGE SC SCH (12:26)
[2019-05-06] MEDS: Acetaminophen 325 MG TAB PO PRN ×3 (12:30→20:34)
[2019-05-07] MEDS: Acetaminophen 325 MG TAB PO PRN ×3 (00:22→11:31)
[2019-05-07] MEDS: Ibuprofen 800 MG TAB PO SCH ×2 (00:23→08:46)
[2019-05-07 08:12] VITALS: BP 108/60; TEMP 98.2
--- NOTE | 2019-05-07 08:36 | PDOC.PP ---
Post Progress Note Post Day #: 2 Subjective: 23 yo -->1101 s/p on 05/05. Doing well. Voiding, passing gas, tolerating normal diet, ambulating, denies pain this morning. PO intake tolerated: yes Flatus: yes Ambulation: yes Vital Signs (12 hours) Temp Pulse Resp BP BP Pulse Ox 05/07/19 08:11 98.2 F 72 20 108/60 100 05/07/19 04:15 97.9 F 67 20 96/51 L 05/07/19 00:30 98.2 F 72 20 114/64 Weight Weight 126.099 kg - Physical Examination General: NAD Cardiovascular: no m/r/g, RRR Respiratory: clear to auscultation bilaterally Abdominal: + bowel sounds (nontender to palpation) Fundus firm & at: -2 Skin: no rash Neurological: no gross focal deficits Psychiatric: A&Ox3, normal affect Result Diagrams: 05/06/19 04:15 Additional Labs: Post Labs Blood Type O POSITIVE 05/03/19 21:23 Hep Bs Antigen Non-Reactive S/CO (NonReactive) 05/03/19 21:23 (1) Third trimester Code(s): Z34.93 - ENCNTR FOR SUPRVSN OF NORMAL PREG, UNSP, THIRD TRIMESTER Status: Acute (2) Antiphospholipid antibody syndrome complicating Code(s): O99.119 - OT DIS OF BLD/BLD-FORM ORG/IMMUN MECHNSM COMP PREG,UNSP TRI ; D68.61 - ANTIPHOSPHOLIPID SYNDROME Status: Acute (3) Chlamydia infection affecting in first trimester Code(s): O98.811 - OTH MATERNAL INFEC/PARASTC DISEASES COMP PREG, FIRST TRI; A74.9 - CHLAMYDIAL INFECTION, UNSPECIFIED Status: Acute (4) History of stillbirth Code(s): Z87.59 - PERSONAL HISTORY OF COMP OF PREG, CHLDBRTH AND THE PUERP Status: Acute (5) Intrauterine Code(s): Z34.90 - ENCNTR FOR SUPRVSN OF NORMAL , UNSP, UNSP TRIMESTER Status: Acute (6) Maternal obesity affecting , antepartum Code(s): O99.210 - OBESITY COMPLICATING , UNSPECIFIED TRIMESTER Status: Acute (7) hsv1 in Status: Acute (8) thc use in Status: Acute - Assessment/Plan 23 yo -->P1101 s/p on 05/05 @ 38.2wks. IOL 2/2 APS. #sIUP, delivered #APS #THC in 1T #Chlamydia +, ROXANNE negative #HSV, 1T #Hx of IUFD at 26 wks-suspected due to APS -Pt is ambulating, tolerating normal diet, voiding, passing gas, endorss minimal pain. Will dc this afternoon, pending baby bili. -Pt to continue lovenox for 6 weeks and will f/u with heme for assistance with determining if she needs anticoagulation senior living. -Pt to follow-up at [facility] with me in 1-2 weeks. -Ibuprofen sent to pharmacy for pain control. Ronald Mcgill MD, PGY-3 Addendum - Attending - Attending Attestation Date/Time: 05/07/19 0922 I personally evaluated the patient and discussed the management with Dr. Robbins I agree with the History, Examination, Assessment and Plan documented above with any addition or exceptions noted below. 23 yo now female s/p on 05/05/19 at 0505 PPD#2 Doing well. Spinal headache improved. Lochia appropriate. Breast feeding. VS, labs reviewed. Agree with resident PE Funds firm. NT. Below umbilicus 1. s/p : Continue routine care. Ok to d/c to home 2. APLS: Confirmed by 2 serology testing and Obstetrical event. No personal VTEs. Has been on ppx anticoagulation during and antiplatelet for prevention. Risk for preE. Monitor closely. Lovenox restarted. Would consider trending antiXa levels due to morbid obesity. Continue for 6 wks. Follow up out patient with heme. 3. BMI 46: Lifestyle modifications. 4. hx of stillbirth at 26 wks: HSV1 in placenta path. Clots noted in placenta and cord per patient. Unable to review path. 5. hx of HSV1: Patient unsure of location of outbreak. On ppx. Low likelihood of genital recurrence but due to history caution used. Negative speculum exam for suspicious lesions. 6. HDS: No active infection 7. hx of MMD on SSRI: Monitor for complications. Monitor for progressive ppd. Currently stable. Breast feeding. 8. hx of CT this : Asymptomatic. Treated. ROXANNE negative. PPX after delivery. 9. THC use in 1T: UDS on mom not obtained. Will monitor infant. Denies use since 1T which was during a period she did not know she was . 10. PCN allergy D/c to home. Follow up in 2 wks. Rhoda
[2019-05-07] MEDS: Prenatal Vitamin 1 TAB PO SCH (08:46)
[2019-05-07] MEDS: Docusate Calcium (SURFAK) 240 MG CAP PO SCH (08:46)
[2019-05-07] MEDS: Ferrous Sulfate 325 MG TAB PO SCH (08:47)
[2019-05-07] MEDS: Enoxaparin Sodium 40 MG/0.4 ML SYRINGE SC SCH (11:27)
== END 2019-05-07 13:35 | disposition home or self-care (01) | DRG 806 ==
LOC: L&D 19:12 → 3SW 05-05 08:30
PROVIDERS: ADMIT Family Medicine; ATTEND Family Medicine
PROC: 10E0XZZ Delivery of Products of Conception, External Approach (ICD-10-PCS; principal; 2019-05-05)
PROC: 3E0P7VZ Introduction of Hormone into Female Reproductive, Via Natural or Artificial Opening (ICD-10-PCS; 2019-05-05)
PROC: 3E033VJ Introduction of Other Hormone into Peripheral Vein, Percutaneous Approach (ICD-10-PCS; 2019-05-05)
PROC: 0U7C7ZZ Dilation of Cervix, Via Natural or Artificial Opening (ICD-10-PCS; 2019-05-05)
DX: O99.12 Other diseases of the blood and blood-forming organs and certain disorders involving the immune mechanism complicating childbirth (principal); D68.61 Antiphospholipid syndrome; Z37.0 Single live birth; O98.52 Other viral diseases complicating childbirth; B00.9 Herpesviral infection, unspecified; O99.214 Obesity complicating childbirth; E66.9 Obesity, unspecified; Z3A.38 38 weeks gestation of pregnancy; Z88.1 Allergy status to other antibiotic agents; Z87.59 Personal history of other complications of pregnancy, childbirth and the puerperium; Z88.0 Allergy status to penicillin; O99.344 Other mental disorders complicating childbirth; F32.9 Major depressive disorder, single episode, unspecified; O77.0 Labor and delivery complicated by meconium in amniotic fluid; R51 Headache; O90.89 Other complications of the puerperium, not elsewhere classified; L73.2 Hidradenitis suppurativa; O99.713 Diseases of the skin and subcutaneous tissue complicating pregnancy, third trimester; O76 Abnormality in fetal heart rate and rhythm complicating labor and delivery
CPT/HCPCS: 36415; 51702; 85025; 85027; 86780; 86850; 86900; 86901; 87340; C1726; J0595; J1650; J2590; J8597; Q0163; S0020

== ENCOUNTER 2020-04-07 12:52 | Outpatient (CLI) | payer OTHER ==
[2020-04-08 12:24] LABS: SARS-CoV-2 MS2 Positive; SARS-CoV-2 N Gene Negative; SARS-CoV-2 S Gene Negative; SARS-CoV-2 orf1ab Negative
== END 2020-04-07 12:53 | disposition home or self-care (01) ==
LOC: LABSCS 12:52
PROVIDERS: ATTEND Emergency Medicine
DX: Z01.812 Encounter for preprocedural laboratory examination (principal); Z11.59 Encounter for screening for other viral diseases
CPT/HCPCS: 87635; U0003

== ENCOUNTER 2020-04-10 19:30 | Inpatient (IN) | payer OTHER ==
[~2020-04-10 19:30] MED LIST changes: +Bupivacaine HCl 0.5%/Epinephrine 1:200,000/PF 30 ml Vial ONE; +Bupivacaine/Epinephrine 0.25% 30 ML VIAL ONE; +EPHEDRINE 25 MG/5 ML SYRINGE ONE; +Lidocaine 2% MPF 10 ML AMP (For Epidural Use) ONE
--- NOTE | 2020-04-10 22:19 | PDOC.FPROB ---
FMR OB H&P: HPI - History of Present Illness Chief Complaint: mIOL Indentification: 24F @ 38 weeks History of Present Illness: Pt is a 24F @ 38 weeks, PMHx of obesity, Antiphospholipid antibody syndrome, MMA, HSV, A1GDM, IUFD @26 weeks, who presents for medical induction of labor. Pt denies LOF, CTX, vaginal bleeding, vaginal discharge. She reports good movements. Denies fever and chills, headache/vision changes/RUQ pain , dyspnea/SOB/CP. Primary Care Physician: JOSHUA Leal FMR OB H&P: Current - Care : 3 Para: 1101 Gestational age: 38 weeks Due date: 04/24/2020 Dating Criteria: LMP and 13.4 wk sono Total weight gain: >50 lbs Course/Complications: A1GDM, APL, MMA, Obesity - OB Labs Blood type: O RH: positive Antibody Screen: negative HIV: negative RPR: negative HepBsAg: negative Rubella: immune Gonorrhea: negative Chlamydia: negative Pap Smear: January 2020, normal, HPV - 1 hour gtt: 86 GBS: negative - Additional Ultrasound Additional: LGA fetus, EFW: 3377 @ 35.5wks, Hadlock 96% FMR OB H&P: History - Past Medical History PMH: Depression, Antiphospholipid Syndrome, HSV, MMA, A1GDM, Hx Chlamydia (resolved 01/2020), obesity - OB History OB History: #1: 07/27/2017, male, 26 weeks, , IUFD; #2: 05/05/2019, female, 38.2weeks, - [employer] History [employer] History: Hx Chlaymdia/Gonorrhea/HSV, hx abnormal pap smear - unknown; last pap smear 2019 normal, HPV negative, GC treated and resolved, no active HSV lesions Menarche - age 11 - Surgical History Sx History: Tympanostomy 2012, L elbow surgery - Social History Social History: Endorses hx of smoking but no recent, denies alcohol and drug use; past marijuana use (before ), current caffeine use (2 cokes/day), lives at home with mom, baby, sister, FOB. FOB involved. Prior CPS case, closed. - Family History Family History: Paternal Grandmother: DM, HTN, HLD; maternal grandfather: DM, HTN, HLD, pancreatic cancer FMR OB H&P: Medications - Current Home Medications: Medication Instructions Recorded Confirmed Type Vit 93/Iron Fum/Folic 1 tab PO DAILY 05/04/19 05/04/19 History [ Formula Tablet] Sertraline HCl [Zoloft] 25 mg PO DAILY 05/04/19 05/04/19 History Enoxaparin Sodium [Lovenox] 40 mg SC DAILY #30 05/07/19 05/03/19 Rx Ibuprofen 800 mg PO TID PRN #30 tablet 05/07/19 Rx Ibuprofen [Motrin] 800 mg PO 0100,0900,1700 #20 tab 05/07/19 Rx Aspirin [Aspirin EC] 81 mg PO DAILY 04/10/20 04/10/20 History Enoxaparin Sodium [Lovenox] 40 mg SC DAILY 04/10/20 04/10/20 History valACYclovir [Valtrex] 04/10/20 History Allergies/Adverse Reactions: Allergies Allergy/AdvReac Type Severity Reaction Status Date / Time amoxicillin Allergy Mild Hives Verified 04/10/20 22:52 FMR OB H&P: ROS - Review of Systems General: denies: fever/chills Eyes: denies: vision changes, scotomas ENT: denies: nasal congestion, rhinorrhea, sore throat Cardiovascular: denies: chest pain, palpitation, edema Respiratory: denies: cough, shortness of breath Gastrointestinal: reports: nausea (She attributes to being nervous). denies: abdominal pain, vomiting, diarrhea, constipation, bright red blood Genitourinary (Female): denies: dysuria, hematuria, vaginal discharge, vaginal bleeding, contractions Musculoskeletal: denies: pain, decrease range of motion Neurologic: denies: numbness, headache Integumentary: denies: itching, lesions Breast: denies: skin changes Psychological: denies: depression FMR OB H&P: Vital Signs - Maternal Vital signs: BP 128/73, HR 93 - Heart Tones Baseline: 130 Variability: moderate Acceleration: absent Deceleration: absent Category: category 1 Desloge contractions every: N/A FMR OB H&P: Physical Exam - Physical Exam General: NAD, awake, alert and oriented HEENT: normocephalic and atraumatic, EOMI, grossly normal vision, grossly normal hearing Neck: supple, FROM Breast: symmetric Heart: RRR, normal S1/S2, no murmurs/rubs/gallops General: CTAB, no respiratory distress Abdomen: soft, gravid, bowel sound present Musculoskeletal: normal gait and station, pulses present, FROM in all four extremities Neurological: cranial nerves II through XII intact, sensation to pain,touch and proprioception grossly normal Skin: no rash, good tugor Psychiatric: intact recent and remote memory, good judgement and insight, normal mood and affect - Pelvic Exam Vulva: no lesions, no discharge, no blood Cervix: no lesions SVE: No lesions, /3 Oates score: 5 Membranes: Intact Presentation: Vertex FMR OB H&P: A/P Discussion: Date/Time: 04/10/202216 Pt is a 24F @ 38 weeks, PMHx of obesity, Antiphospholipid antibody syndrome, MMA, A1GDM, hx of IUFD @26 weeks, who presents for medical induction of labor. Medical Induction of Labor, term - 2315: 3, will start with Cytotec, repeat cervical check in 4 hrs, will keep NPO, start fluids, no lesions - LGA fetus, EFW: 3377 @ 35.5wks, [place] 96% HSV - No lesions on vaginal exam Antiphospholipid Antibody Syndrome - Previously on Lovenox and ASA. - Lovenox stopped 24h prior to induction A2GDM - Diet-controlled Hx of IUFD @ 26 weeks - Aware This H&P was discussed with Dr. Jyoti Paulson and Dr. Luis Alberto Cruz who agree with the above documentation and plan. HPI: this is a 24yo @ 38 wks. mIOL due to APS, MMA, A1GDM. She denies any LOF, CTX, vaginal discharge. Endorses +FM. Denies headache, NVD, abd pain, fever, SOB, cough, chest pain. PE: General: Comfortabl, NAD Cardio: RRR, No murmurs, rubs, or gallops Resp: CTAB Abd: gravid MSK: trace edema b/l LE Female : no lesions noted, no vaginal discharge. SVE: /3 Psych: alert, oriented Plan: mIOL, sIUP - Routine care, - SVE /-3, oates 5. Will start cytotech - Recheck in 4 hours - NPO, IVF - Cat 1 strip, will continue to monitor HSV - no lesions noted, proceed with vaginal delivery APS - previously on lovenox. has been stopped for over 24hrs Case discussed with Dr. Cruz Addendum - Attending - Attending Attestation Date/Time: 04/11/20 114 I personally evaluated the patient and discussed the management with the team. I agree with the History, Examination, Assessment and Plan documented above with any addition or exceptions noted below. A1DM, morbid obesity, excessive weight gain with LGA fetus, <4500 g at last sono -MFM approved mIOL -check sugar APLS -off lovenox per recommendation -restart 6-8 p or 8-12 p -ASA for life Cytotec for ripening.
[2020-04-10] MEDS ORDERED: Promethazine HCl 25 MG/ML VIAL IM PRN (22:42)
[2020-04-10] MEDS ORDERED: NS / Oxytocin 40 units/1000ml 1,000 ML IV PRN (22:42)
[2020-04-10] MEDS ORDERED: Ondansetron PF 4 MG/2 ML Vial IVP PRN (22:42)
[2020-04-10] MEDS ORDERED: Lidocaine 1% (PF) 30 ML VIAL SC PRN (22:42)
[2020-04-10] MEDS ORDERED: hydrALAZINE 20 MG/ML VIAL SLOW IVP PRN (22:42)
[2020-04-10 22:48] VITALS: BMI 57.8
[2020-04-10 23:30] LABS: Hemoglobin 11.5 g/dL (12.0-16.0); Mean Corpuscular HGB CONC 33.7 g/dL (32.0-36.0); Mean Corpuscular Hemoglobin 28.5 pg (27.0-31.0); Mean Corpuscular Volume 84.4 fL (78.0-98.0); Mean Platelet Volume 7.9 fL (7.4-10.4); Platelet Count 272 thou/uL (130-400); RBC Distribution Width 13.9 % (11.5-14.5); Red Blood Cell (RBC) Count 4.04 mill/uL (4.20-5.40); White Blood Cell (WBC) Count 10.5 thou/uL (4.8-10.8)
[2020-04-11 00:24] LABS: Syphilis Antibody Nonreactive (Nonreactive); Syphilis Antibody Index 0.03 S/CO (<1.00 Non-Reactive)
[2020-04-11 00:41] LABS: HBSAg Index 0.11 S/CO (0-0.99); Hep B Surf Ag Non-Reactive S/CO (NonReactive)
--- NOTE | 2020-04-11 01:13 | PDOC.OBLPN ---
R OB Labor PN: Subj - Interval History Hospital Day: 1 Chief Complaint: mIOL Indentification: 24F @ 38.3 wks GA R OB Labor PN: Obj - Maternal Vital signs: BP: 121/58 HR: 84 R OB Labor PN: Exam - Physical Exam General: NAD, awake, alert and oriented HEENT: normocephalic and atraumatic, EOMI, grossly normal vision, grossly normal hearing Neck: supple, FROM Breast: symmetric Heart: RRR, normal S1/S2, no murmurs/rubs/gallops General: CTAB, no respiratory distress, good air movement Abdomen: soft, gravid, bowel sound present Musculoskeletal: normal gait and station, FROM in all four extremities Neurological: no focal deficit Skin: no rash Lymphatic: no unusual bruising or bleeding Psychiatric: intact recent and remote memory, normal mood and affect - Pelvic Exam Vulva: no lesions, no discharge, no blood Cervix: no masses, no lesions, no blood SVE: No lesions, 60/-3 Perry score: 5 Membranes: Intact Presentation: OP Estimated Weight: 7 lbs R OB Labor PN: Data - Labs Lab results: Laboratory Results - last 24 hr 04/10/20 04/10/20 04/10/20 22:43 23:04 23:04 WBC 10.5 RBC 4.04 L Hgb 11.5 L Hct 34.1 L MCV 84.4 MCH 28.5 MCHC 33.7 RDW 13.9 Plt Count 272 MPV 7.9 Syphilis IgG/IgM Ab Nonreactive Hep Bs Antigen Blood Type O POSITIVE Antibody Screen NEGATIVE 04/10/20 23:05 WBC RBC Hgb Hct MCV MCH MCHC RDW Plt Count MPV Syphilis IgG/IgM Ab Hep Bs Antigen Non-Reactive Blood Type Antibody Screen [facility] OB Labor PN: A/P Discussion: Date/Time: 04/11/[address] Cytotec earlier because we were having difficulty getting a consistent FHT. Had to use U/S for exact positioning. Were finally able to get 20 min of consistent FHT that showed a cat 1 strip with baseline 125 and several good accels. Cytotec placed at 1 am. Still 60/-3. Will recheck in 3-4 hrs. At that time, if patient is low enough, will consider placing FSE. Baby noted to be OP on U/S. Addendum - Attending - Attending Attestation Date/Time: 04/11/20 5697 I personally evaluated the patient and discussed the management with the team. I agree with the History, Examination, Assessment and Plan documented above with any addition or exceptions noted below. Utilized sono to place EFM. Cytotec for ripening.
--- NOTE | 2020-04-11 05:00 | PDOC.OBLPN ---
FMR OB Labor PN: Subj - Interval History Hospital Day: 1 Chief Complaint: mIOL @ 38.3 wks Indentification: 24F @ 38.3 wks presenting for mIOL 2/2 APL FMR OB Labor PN: Obj - Maternal Vital signs: BP: 125/60 - Procedures Resuscitative measures: maternal IV fluids FMR OB Labor PN: Exam - Physical Exam General: NAD HEENT: normocephalic and atraumatic, EOMI, grossly normal vision, grossly normal hearing Neck: supple, FROM Breast: symmetric Abdomen: soft, gravid Musculoskeletal: FROM in all four extremities Psychiatric: intact recent and remote memory, normal mood and affect - Pelvic Exam Vulva: no masses, no lesions, no blood Cervix: no lesions, no blood Perry score: 6 Membranes: Intact Presentation: OP FMR OB Labor PN: Data - Labs Lab results: Laboratory Results - last 24 hr 04/10/20 04/10/20 04/10/20 22:43 23:04 23:04 WBC 10.5 RBC 4.04 L Hgb 11.5 L Hct 34.1 L MCV 84.4 MCH 28.5 MCHC 33.7 RDW 13.9 Plt Count 272 MPV 7.9 Syphilis IgG/IgM Ab Nonreactive Hep Bs Antigen Blood Type O POSITIVE Antibody Screen NEGATIVE 04/10/20 23:05 WBC RBC Hgb Hct MCV MCH MCHC RDW Plt Count MPV Syphilis IgG/IgM Ab Hep Bs Antigen Non-Reactive Blood Type Antibody Screen FMR OB Labor PN: A/P Discussion: Date/Time: 04/11/20 0458 mIOL: - SVE 3/60/-3 4 hrs after 1st Cytotec - Perry score of 6 - FHT intermittently difficult to view 2/2 body habitus but when visible it is reactive and a cat 1 with a baseline of 110 with several accels - Patient is feeling contractions that she rates as 1/10 so she can barely feel them. On the monitor they show up intermittently once/1-3min but they are very small on the monitor - Will start pit and recheck in 3-4 hrs Case discussed with Dr. Luis Alberto Cruz
[2020-04-11] MEDS ORDERED: NS w/ Oxytocin 10 units 500 ML ONE (05:38)
[2020-04-11] MEDS ORDERED: Misoprostol 200 MCG TAB PR PRN (07:33)
[2020-04-11] MEDS ORDERED: Diphenoxylate HCl/Atropine Tablet PO PRN ×2 (07:33)
[2020-04-11] MEDS ORDERED: Methylergonovine 0.2 MG/ML VIAL IM PRN (07:33)
[2020-04-11] MEDS ORDERED: Carboprost 250 MCG/ML AMP IM PRN (07:33)
[2020-04-11] MEDS ORDERED: Ibuprofen 800 MG TAB PO PRN (07:33)
--- NOTE | 2020-04-11 08:40 | PDOC.OBLPN ---
FMR OB Labor PN: Subj - Interval History Hospital Day: 2 Chief Complaint: mIOL FMR OB Labor PN: Obj - Maternal Vital signs: BP: 123/78 - Urine output I&O: 2 unmeasured voids since 0500. - Procedures AROM: clear fluid IUPC placed: yes FSE placed: yes FMR OB Labor PN: Exam - Physical Exam General: NAD, awake, alert and oriented HEENT: normocephalic and atraumatic, EOMI, MMM, grossly normal vision, grossly normal hearing Heart: RRR, pulses present General: CTAB, no respiratory distress Abdomen: soft, gravid Musculoskeletal: normal gait and station, FROM in all four extremities Skin: no rash Lymphatic: no unusual bruising or bleeding, no purpura Psychiatric: intact recent and remote memory, normal mood and affect - Pelvic Exam SVE: 2 Perry score: 6 Membranes: AROM Presentation: cephalic, OP on US when induction began Estimated Weight: 7 lbs (per MFM US) FMR OB Labor PN: Data - Labs Lab results: Laboratory Results - last 24 hr 04/10/20 04/10/20 04/10/20 22:43 23:04 23:04 WBC 10.5 RBC 4.04 L Hgb 11.5 L Hct 34.1 L MCV 84.4 MCH 28.5 MCHC 33.7 RDW 13.9 Plt Count 272 MPV 7.9 Syphilis IgG/IgM Ab Nonreactive Hep Bs Antigen Blood Type O POSITIVE Antibody Screen NEGATIVE 04/10/20 23:05 WBC RBC Hgb Hct MCV MCH MCHC RDW Plt Count MPV Syphilis IgG/IgM Ab Hep Bs Antigen Non-Reactive Blood Type Antibody Screen FMR OB Labor PN: A/P Disposition: Medical Induction of Labor, term -SVE @ 0500 3, pitocin started @ 0600 -Between 0600 and 0800, patient's IV pump turned off twice so did not get 2 continuous hours of pitocin -SVE @ 0815 2, continued with pitocin (at 6u @ 0830) -Due to body habitus and patient not comfortable staying on her back, has been very difficult to keep patient on toco and FHR monitors -SVE @ 1030 unchanged 2, AROM performed with clear amniotic fluid visualized, IUPC and FSC placed, with assistance from Dr. Childs -Will continue pitocin more aggressively now that internal monitors are in place -Would eventually like epidural, but does not want one right now HSV - No lesions on vaginal exam - Has been on prophylaxis antepartum Antiphospholipid Antibody Syndrome - Previously on Lovenox and ASA. - Lovenox stopped 24h prior to induction A1GDM - Diet-controlled, diagnosed per MFM - glucose checks q4hr - will tx with aggressive SSI for glucose >110 - last glucose 90 @ 0930 Hx of IUFD @ 26 weeks - Aware Hx of methylmalonic acidemia - Aware Summary of Labor Progression: 04/07/20: SVE 2/50/-3, COVID screen negative 04/10/20: presented for mIOL 04/11/20: @0100 SVE 2/60/-3, cytotec 25mcg placed @0500 SVE 3/60/-3, pitocin started @0600 although not continuously as noted above @0815 SVE 3/60/-2, pitocin continued, unable to increase rate due to poor monitoring @1030 SVE 3/60/-2, AROM with clear amniotic fluid, IUPC and FSC placed Discussion: Date/Time: 04/11/20 0839 This H&P was discussed with Dr. Julio who agrees with the above documentation and plan.
[2020-04-11] MEDS: Lactated Ringer's 1,000 ML IV SCH ×2 (13:45→18:03)
--- NOTE | 2020-04-11 14:01 | PDOC.OBLPN ---
FMR OB Labor PN: Subj - Interval History Hospital Day: 2 Chief Complaint: mIOL Interval History: Has been on pitocin, starting to feel painful ctx FMR OB Labor PN: Obj - Maternal Vital signs: BP 118/60, HR 77 - Procedures AROM: clear fluid IUPC placed: yes FSE placed: yes FMR OB Labor PN: Exam - Physical Exam General: NAD, awake, alert and oriented HEENT: normocephalic and atraumatic Abdomen: soft, gravid Musculoskeletal: normal gait and station, FROM in all four extremities - Pelvic Exam SVE: /-1 Perry score: 6 Membranes: AROM Presentation: cephalic, OP on US Estimated Weight: 7 lbs FMR OB Labor PN: Data - Labs Lab results: Laboratory Results - last 24 hr 04/10/20 04/10/20 04/10/20 22:43 23:04 23:04 WBC 10.5 RBC 4.04 L Hgb 11.5 L Hct 34.1 L MCV 84.4 MCH 28.5 MCHC 33.7 RDW 13.9 Plt Count 272 MPV 7.9 POC Glucose Syphilis IgG/IgM Ab Nonreactive Hep Bs Antigen Blood Type O POSITIVE Antibody Screen NEGATIVE 04/10/20 04/11/20 04/11/20 23:05 09:16 13:38 WBC RBC Hgb Hct MCV MCH MCHC RDW Plt Count MPV POC Glucose 90 89 Syphilis IgG/IgM Ab Hep Bs Antigen Non-Reactive Blood Type Antibody Screen - Imaging Imaging: FHR tracing category 1, ctx every 2-5 min, adequate at 300 MVUs FMR OB Labor PN: A/P Disposition: Medical Induction of Labor, term -SVE @ 1320 /-1 -pitocin currently at 14u, will continue pit -Would like epidural before next check, due @ 1630 HSV - No lesions on vaginal exam - Has been on prophylaxis antepartum Antiphospholipid Antibody Syndrome - Previously on Lovenox and ASA. - Lovenox stopped 24h prior to induction A1GDM - Diet-controlled, diagnosed per MFM - glucose checks q4hr - will tx with aggressive SSI for glucose >110 - last glucose 89 @ 1300 Hx of IUFD @ 26 weeks - Aware Hx of methylmalonic acidemia - Aware Summary of Labor Progression: 04/07/20: SVE 2/50/-3, COVID screen negative 04/10/20: presented for mIOL 04/11/20: @0100 SVE 260/-3, cytotec 25mcg placed @0500 SVE 60/-3, pitocin started @0600 although not continuously @0815 SVE 60/-2, pitocin continued, unable to increase rate due to poor monitoring @1030 SVE 60/-2, AROM with clear amniotic fluid, IUPC and FSC placed, pitocin continued (6 units) @1330 SVE /-2, pitocin continued(14 units) Discussion: Date/Time: 04/11/20 1401 This H&P was discussed with Dr. Julio who agrees with the above documentation and plan.
[2020-04-11] MEDS ORDERED: Lidocaine 1% (PF) 30 ML VIAL SC PRN (14:16)
[2020-04-11] MEDS ORDERED: NS / Oxytocin 40 units/1000ml 1,000 ML IV PRN (14:16)
[2020-04-11] MEDS ORDERED: Fentanyl 4 mcg/Bup 0.1% Cadd 100 ML ONE (15:26)
[2020-04-11] MEDS ORDERED: Acetaminophen 325 MG TAB PO PRN (16:42)
[2020-04-11] MEDS ORDERED: EPHEDRINE 25 MG/5 ML SYRINGE SLOW IVP PRN (16:42)
[2020-04-11] MEDS ORDERED: Naloxone HCl 0.4 mg/ml Vial IVP PRN ×2 (16:42)
[2020-04-11] MEDS ORDERED: diphenhydrAMINE 50 MG/ML VIAL IVP PRN (16:42)
[2020-04-11] MEDS ORDERED: Ondansetron PF 4 MG/2 ML Vial IVP PRN (16:42)
[2020-04-11] MEDS ORDERED: Promethazine HCl 25 MG/ML VIAL IM PRN (16:42)
[2020-04-11] MEDS ORDERED: Lactated Ringer's 500 ML IV PRN (16:42)
[2020-04-11] MEDS ORDERED: Fentanyl 4 mcg/Bupivacaine 0.1% Cassette 100 ML EPIDURAL SCH (16:45)
[2020-04-11] MEDS ORDERED: Communication Order-Pharmacy FS SCH (16:45)
--- NOTE | 2020-04-11 17:28 | PDOC.LDPN ---
Labor & Delivery Progress Note - Subjective Subjective: comfortable - Objective Vital signs reviewed and normal: yes (BP dropped after epidural. Now in 90s-100s /50s-60s.) General: NAD, resting Uterine fundus: tender to palpation Dilation: 5 Effacement: 75% Station: -1 FHT: category 2, late decelerations (initially with every contraction. Now spacing out after fluid bolus. ), variability present [place] contractions every: 2-3 min Resuscitative measures: maternal position change Plan: resuscitative measures -: Currently has a category 2 strip starting at approximately 1630. recovers quickly with decelerations. Finish fluid bolus and if no improvement will give ephedrine. Discussed with patient and her mother the possibility for need for urgent/emergent intervention via pLTCS. I/R/B/A discussed at this time and all of their questions were answered. No need for urgent intervention at this time but will monitor closely in reassess in the next 10-20 minutes.
--- NOTE | 2020-04-11 19:21 | PDOC.OBLPN ---
FMR OB Labor PN: Subj - Interval History Hospital Day: 2 Chief Complaint: mIOL at 38.4 wks 2/2 APS Indentification: 24F at 38.4 wks with APS, MMA, diet-controlled GDM, hx of IUFD FMR OB Labor PN: Obj - Maternal Vital signs: BP: 101/56, HR 102 - Procedures AROM: clear fluid IUPC placed: yes FSE placed: yes (Fell off. Replaced at 1900) Resuscitative measures: maternal IV fluids (Pit caused low BPs and decels so pt was bolused. Maternal BP improved and FHT back to cat 1) FMR OB Labor PN: Exam - Physical Exam General: NAD, awake, alert and oriented HEENT: normocephalic and atraumatic, EOMI, grossly normal vision, grossly normal hearing Neck: supple, FROM General: no respiratory distress Abdomen: soft, gravid, non-tender Psychiatric: intact recent and remote memory, normal mood and affect - Pelvic Exam Vulva: no masses, no lesions, no blood Deviation from normal: Clear amniotic fluid Cervix: no masses, no lesions, no blood Perry score: 9 Membranes: AROM @ 1030 on 04/11/2020 Presentation: Cephalic FMR OB Labor PN: Data - Labs Lab results: Laboratory Results - last 24 hr 04/10/20 04/10/20 04/10/20 22:43 23:04 23:04 WBC 10.5 RBC 4.04 L Hgb 11.5 L Hct 34.1 L MCV 84.4 MCH 28.5 MCHC 33.7 RDW 13.9 Plt Count 272 MPV 7.9 POC Glucose Syphilis IgG/IgM Ab Nonreactive Hep Bs Antigen Blood Type O POSITIVE Antibody Screen NEGATIVE 04/10/20 04/11/20 04/11/20 23:05 09:16 13:38 WBC RBC Hgb Hct MCV MCH MCHC RDW Plt Count MPV POC Glucose 90 89 Syphilis IgG/IgM Ab Hep Bs Antigen Non-Reactive Blood Type Antibody Screen FMR OB Labor PN: A/P Discussion: Date/Time: 04/11/201917 mIOL at 38.4 2/2 APS: - FHT cat 1 with avg baseline of 120 with good variability, several accels, and no decels - Patient vitals showed BP at 101/56 and HR of 102 - Pit break given @ 1715 because of FHT showing decels - Pit restarted @ 1914. - /-2, baby cephalic and posterior @ 1914. Will recheck in 1 hr - FSE fell off and was replaced @ 1914 Addendum - Attending - Attending Attestation Date/Time: 04/11/202030 I personally evaluated the patient and discussed the management with the team. I agree with the History, Examination, Assessment and Plan documented above with any addition or exceptions noted below. Cat 1 upon my evaluation. Restart pit after an hour pit break and recheck cervix 2-4 hours after previous.
--- NOTE | 2020-04-11 20:38 | PDOC.OBLPN ---
FMR OB Labor PN: Subj - Interval History Hospital Day: 2 Chief Complaint: mIOL @ 38.4 wks 2/ APS Indentification: 24F @ 38.4 wks with hx of APS, MMA, diet-controlled GDM, hx of IUFD FMR OB Labor PN: Obj - Maternal Vital signs: BP: 137/74 HR: 96 - Procedures IUPC placed: yes FSE placed: yes FMR OB Labor PN: Data - Labs Lab results: Laboratory Results - last 24 hr 04/10/20 04/10/20 04/10/20 22:43 23:04 23:04 WBC 10.5 RBC 4.04 L Hgb 11.5 L Hct 34.1 L MCV 84.4 MCH 28.5 MCHC 33.7 RDW 13.9 Plt Count 272 MPV 7.9 POC Glucose Syphilis IgG/IgM Ab Nonreactive Hep Bs Antigen Blood Type O POSITIVE Antibody Screen NEGATIVE 04/10/20 04/11/20 04/11/20 23:05 09:16 13:38 WBC RBC Hgb Hct MCV MCH MCHC RDW Plt Count MPV POC Glucose 90 89 Syphilis IgG/IgM Ab Hep Bs Antigen Non-Reactive Blood Type Antibody Screen 04/11/20 19:19 WBC RBC Hgb Hct MCV MCH MCHC RDW Plt Count MPV POC Glucose 86 Syphilis IgG/IgM Ab Hep Bs Antigen Blood Type Antibody Screen FMR OB Labor PN: A/P Discussion: Date/Time: 04/11/202036 mIOL @ 38.4 wks 10/24 APS: - FHT Cat 1: 125 baseline, good variability, several accels, no decels - Maternal BP 137/74, HR 96 - Will recheck cervix in 2-3 hrs
--- NOTE | 2020-04-11 21:44 | PDOC.OBLPN ---
FMR OB Labor PN: Subj - Interval History Hospital Day: 2 Chief Complaint: mIOL @ 38.4 wks 2/2 APS Indentification: 24F @ 38.4 wks with hx of APS, MMA, GDM, hx of IUFD FMR OB Labor PN: Obj - Maternal Vital signs: BP: 117/ FMR OB Labor PN: Data - Labs Lab results: Laboratory Results - last 24 hr 04/10/20 04/10/20 04/10/20 22:43 23:04 23:04 WBC 10.5 RBC 4.04 L Hgb 11.5 L Hct 34.1 L MCV 84.4 MCH 28.5 MCHC 33.7 RDW 13.9 Plt Count 272 MPV 7.9 POC Glucose Syphilis IgG/IgM Ab Nonreactive Hep Bs Antigen Blood Type O POSITIVE Antibody Screen NEGATIVE 04/10/20 04/11/20 04/11/20 23:05 09:16 13:38 WBC RBC Hgb Hct MCV MCH MCHC RDW Plt Count MPV POC Glucose 90 89 Syphilis IgG/IgM Ab Hep Bs Antigen Non-Reactive Blood Type Antibody Screen 04/11/20 19:19 WBC RBC Hgb Hct MCV MCH MCHC RDW Plt Count MPV POC Glucose 86 Syphilis IgG/IgM Ab Hep Bs Antigen Blood Type Antibody Screen FMR OB Labor PN: A/P Discussion: Date/Time: 04/11/202142 mIOL at 38.4 wks 2/2 APS - FHT cat 1 - Maternal BP 107/74 and HR 96 - 5/80/-2 - Pit has been at 10; is being increased to 12 since she was previously at 14 - Recheck in 3-4 hrs
--- NOTE | 2020-04-12 01:20 | PDOC.OBLPN ---
FMR OB Labor PN: Subj - Interval History Hospital Day: 2 Chief Complaint: mIOL @ 38.5 wks 2/2 APS Indentification: 24F @ 38.5 wks with APS, MMA, GDM, HSV, hx of IUFD FMR OB Labor PN: Obj - Maternal Vital signs: BP: 133/65, HR: 77 - Procedures AROM: clear fluid IUPC placed: yes FSE placed: yes Resuscitative measures: maternal IV fluids FMR OB Labor PN: Exam - Physical Exam General: NAD, awake, alert and oriented HEENT: normocephalic and atraumatic, EOMI, grossly normal vision, grossly normal hearing Neck: supple, FROM General: no respiratory distress Abdomen: soft, gravid Musculoskeletal: FROM in all four extremities (Decreased slightly 2/2 epidural) Deviation from normal: Strength and sensation inhibited by epidural Psychiatric: normal mood and affect - Pelvic Exam Vulva: no masses, no lesions, no blood Cervix: no masses, no lesions, no blood SVE: 5/80/-2 Perry score: 9 Membranes: AROM @ 1030 on 04/11/2020 Presentation: Cephalic FMR OB Labor PN: Data - Labs Lab results: Laboratory Results - last 24 hr 04/11/20 04/11/20 04/11/20 09:16 13:38 19:19 POC Glucose 90 89 86 04/12/20 00:39 POC Glucose 79 FMR OB Labor PN: A/P Discussion: Date/Time: 04/12/20 0119 mIOL at 38.4 wks 2/2 APS - FHT cat 1: baseline 125, good variability, several accels, no decels - Maternal BP 133/65, HR 77 - 5/80/-2 - Pit up to 18 now. Nurse states she has gone through almost a full bag of pit and is getting nervous since the is already high-risk and patient is at high risk of bleeding 2/2 APS - Recheck in 3-4 hrs Addendum - Attending - Attending Attestation Date/Time: 04/12/20 0748 I personally evaluated the patient and discussed the management with Dr. Justin Ontiveros. I agree with the History, Examination, Assessment and Plan documented above with any addition or exceptions noted below. I checked the patient and she had no change. I was called around 0515 that she was having late decelerations. Upon exam she was still unchanged and was having recurrent lates. In light of now failed induction with nearly 24 hours of pitocin and AROM'd for >18 hours, as well as recurrent late decelerations and inability to continue pitocin we will proceed with PLTCS. Risks discussed and she desires to proceed. Clinda/anitra for ppx.
[2020-04-12] MEDS ORDERED: NS w/ Oxytocin 10 units 500 ML ONE (01:27)
[2020-04-12] MEDS ORDERED: Azithromycin 500 MG VIAL ONE (05:25)
[2020-04-12] MEDS ORDERED: Ondansetron PF 4 MG/2 ML Vial ONE (05:51)
[2020-04-12] MEDS ORDERED: Lidocaine 2% 10 ML INJ ONE (05:51)
[2020-04-12] MEDS ORDERED: Oxytocin 10 UNITS/ML VIAL ONE (05:51)
[2020-04-12] MEDS ORDERED: Dexamethasone 4 mg/ml Vial ONE (05:51)
[2020-04-12] MEDS ORDERED: Methylergonovine 0.2 MG/ML VIAL ONE (05:52)
[2020-04-12] MEDS ORDERED: Carboprost 250 MCG/ML AMP ONE (05:52)
[2020-04-12] MEDS ORDERED: EPHEDRINE 25 MG/5 ML SYRINGE ONE (06:01)
[2020-04-12] MEDS ORDERED: PHENYLEPHRINE-NS 100 MCG/ML 10 ML SYRINGE ONE (06:01)
[2020-04-12] MEDS ORDERED: Naloxone HCl 0.4 mg/ml Vial IV PRN (06:11)
[2020-04-12] MEDS ORDERED: Meperidine HCl/PF 25 MG/ML VIAL SLOW IVP PRN (06:11)
[2020-04-12] MEDS ORDERED: Naloxone HCl 0.4 mg/ml Vial IVP PRN ×2 (06:11)
[2020-04-12] MEDS ORDERED: Promethazine HCl 25 MG/ML VIAL IM PRN (06:11)
[2020-04-12] MEDS ORDERED: Promethazine HCl 25 MG SUPP PR PRN (06:11)
[2020-04-12] MEDS ORDERED: Ondansetron PF 4 MG/2 ML Vial IVP PRN (06:11)
[2020-04-12] MEDS ORDERED: L&D-Morphine 4 MG/ML VIAL SLOW IVP PRN (06:11)
[2020-04-12] MEDS ORDERED: diphenhydrAMINE 50 MG/ML VIAL IVP PRN (06:11)
[2020-04-12] MEDS ORDERED: Ondansetron HCl/PF 4 MG/2 ML Vial IVP PRN (06:11)
[2020-04-12] MEDS ORDERED: HYDROmorphone 2 MG/ML VIAL SLOW IVP PRN (06:11)
[2020-04-12] MEDS ORDERED: Communication Order-Pharmacy FS SCH (06:15)
[2020-04-12] MEDS ORDERED: Ketorolac Tromethamine 30 MG/ML VIAL IVP SCH (06:15)
[2020-04-12] MEDS ORDERED: MORPHINE 5 MG/10 ML PF VIAL ONE (06:24)
[2020-04-12] MEDS ORDERED: Clindamycin/D5W 900 MG in Premix Bag 1 BAG IVPB SCH (06:30)
--- NOTE | 2020-04-12 07:28 | PDOC.OPDEL ---
OB Operative/Delivery Note Delivery Dr/Surgeon: Fer, with Dr. Cruz attending Assist: Reg Pre-Delivery Diagnosis: arrest of dilation, non-reassuring tracing Procedure/Post Delivery Dx: primary low transverse CS Weeks gestation: 38 (4 days ) Anesthesia: spinal - Additional Findings/Plan Placenta delivered: manual removal findings: low transverse hysterotomy without extension Compilations/Other Findings: Procedure Note Date of Procedure: 04/12/20 Resident Surgeons: Dr. Monroe Assist Surgeon: Mary Boateng Attending Surgeon: Dr. 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 Pt had nonreassuring heart tones and failure to progress. Procedure in Detail: After risks, benefits, and alternatives were explained to the patient, she gave informed consent. Pre-operative antibiotics included azithro and clinda. The patient was taken to the operating room and spinal anesthesia was placed. She was placed in the supine position with a left tilt and prepped and draped in usual sterile fashion. A Pfannenstiel incision was made with a scalpel and carried down to the level of the fascia which was sharply nicked. The fascial cut was extended bilaterally bluntly. The inferior and superior edges of the cut fascial edges were elevated with Tata clamps and the underlying rectus muscles bluntly dissected free. The recti were divided using blunt dissection. The peritoneum was entered bluntly and retracted manually. An Keith O-ring was placed. A bladder flap was made using the metzenbaum scissors and russians. A low transverse score was made with the scalpel and the uterus was entered in the midline with the scalpel. Clear fluid was seen. The hysterotomy was extended manually. The was noted to be vertex and LOT and was easily delivered by fundal pressure. Mouth and nares were bulb suctioned. Cord clamped after 30 seconds delayed and cut and grossly normal male infant was handed to waiting nurse. Cord blood was obtained. Placenta was manually extracted, found to be intact with 3 vessel cord and discarded. Ring forceps were applied to the hysterotomy edges for hemostasis and the endometrium was curetted with a dry lap. The hysterotomy was closed with a running locking 0-Monocryl in the usual fashion. A horizontal imbricating layer was placed using 0- Monocryl in the usual fashion. There was a small amount of oozing at the level of bladder flap edge which was hemostatic after bovie . Following this hemostasis was appreciated. Keith-O was removed and hysterotomy was again noted to be hemostatic. The peritoneum was closed with a running 3.0 vicryl. The rectus was evaluated for bleeders, which were attended to with bovie, following this hemostasis was noted. The fascia was closed with a running non-locking 0-PDS suture. The subcutaneous tissue was irrigated and the bleeders were attended to with bovie. The subcutaneous layer was approximated with 3-0 vicryl in a horitontal running fashion. The skin was approximated with 4-0 monocryl and a wound vac was placed. All counts were correct. The patient tolerated the procedure well and was taken to the recovery room in stable condition. QBL: 870ml Time @ skin incision 0555, Time of delivery: 0606 Complications: None Specimens: did not sent placenta or cord blood anaylsis as was vigorous Findings: Grossly normal male . Grossly normal placenta with 3 vessel cord discarded. Drains: Anton to gravity draining clear urine [facility] Addendum - Attending - Attending Attestation Date/Time: 04/13/20 3167 I was present and scrubbed for all critical portions of the surgery. Please note that Before tightening the Keith-O was noted to be free from underlying bowel or omentum. No immediate complications. Counts correct.
[2020-04-12] MEDS ORDERED: HYDROcodone/Acetaminophen 5/325 mg Tablet PO PRN (09:35)
[2020-04-12] MEDS ORDERED: Lanolin Ointment 7 GM TUBE TOP PRN (09:35)
[2020-04-12] MEDS ORDERED: hydrALAZINE 20 MG/ML VIAL SLOW IVP PRN (09:35)
[2020-04-12] MEDS ORDERED: diphenhydrAMINE 25 MG CAP PO PRN (09:35)
[2020-04-12] MEDS ORDERED: Ferrous Sulfate 325 MG TAB PO SCH (09:45)
[2020-04-12] MEDS ORDERED: Prenatal Vitamin 1 TAB PO SCH (09:45)
[2020-04-12] MEDS ORDERED: Docusate Calcium (SURFAK) 240 MG CAP PO SCH (09:45)
[2020-04-12] MEDS: Ketorolac Tromethamine 30 MG/ML VIAL IVP PRN ×3 (09:52→22:04)
[2020-04-12] MEDS: Misoprostol 100 MCG TAB VAG SCH ×4 (10:34→21:29)
[2020-04-12] MEDS: Lactated Ringer's 1,000 ML IV SCH ×3 (10:35→20:47)
--- NOTE | 2020-04-12 11:09 | PDOC.BPN ---
- Brief Progress Note Post Recovery Note: Pt seen on post-. Reports epidural is wearing off but pain is tolerable, received toradol x1. Bleeding monitored, per nursing report bleeding has been wnl and uterus is firm. Urine output appears adequate, clear/light yellow; 700mL in bag. Denies any N/V. Plan to restart lovenox this evening. Will monitor for any signs of increased bleeding with this.
[2020-04-12] MEDS: Ferrous Sulfate 325 MG TAB PO SCH (11:26)
[2020-04-12] MEDS: HYDROcodone/Acetaminophen 5/325 mg Tablet PO PRN ×2 (17:08→21:29)
[2020-04-12 20:40] LABS: #Eosinphils 0.1 thou/uL (0.0-0.7); #Lymphocytes 2.5 thou/uL (1.20-3.40); #Monocytes 0.7 thou/uL (0.11-0.59); #Neutrophils 8.7 thou/uL (1.40-6.50); %Basophils 0.2 % (0.0-1.0); %Eosinophils 0.9 % (0.0-10.0); %Lymphocytes 20.9 % (21.0-51.0); %Monocytes 5.5 % (0.0-10.0); %Neutrophils 72.5 % (42.0-75.0); Hemoglobin 9.9 g/dL (12.0-16.0); Mean Corpuscular HGB CONC 33.3 g/dL (32.0-36.0); Mean Corpuscular Hemoglobin 28.4 pg (27.0-31.0); Mean Corpuscular Volume 85.3 fL (78.0-98.0); Mean Platelet Volume 7.6 fL (7.4-10.4); Platelet Count 186 thou/uL (130-400)
[2020-04-12] MEDS: Enoxaparin Sodium 40 MG/0.4 ML SYRINGE SC SCH (20:46)
[2020-04-12] MEDS: Docusate Calcium (SURFAK) 240 MG CAP PO SCH (20:47)
[2020-04-12] MEDS: Simethicone Chewable 80 MG TAB PO PRN (21:29)
[2020-04-13] MEDS: Misoprostol 100 MCG TAB VAG SCH ×5 (00:25→08:47)
[2020-04-13] MEDS: HYDROcodone/Acetaminophen 5/325 mg Tablet PO PRN ×5 (01:55→21:46)
[2020-04-13] MEDS: Simethicone Chewable 80 MG TAB PO PRN ×3 (01:56→17:54)
[2020-04-13 05:35] LABS: Hemoglobin 9.2 g/dL (12.0-16.0); Mean Corpuscular Hemoglobin 27.4 pg (27.0-31.0); Mean Corpuscular Volume 85.6 fL (78.0-98.0); Mean Platelet Volume 7.8 fL (7.4-10.4); Platelet Count 183 thou/uL (130-400); RBC Distribution Width 14.1 % (11.5-14.5); Red Blood Cell (RBC) Count 3.35 mill/uL (4.20-5.40); White Blood Cell (WBC) Count 12.6 thou/uL (4.8-10.8)
[2020-04-13] MEDS: Ketorolac Tromethamine 30 MG/ML VIAL IVP PRN (06:15)
--- NOTE | 2020-04-13 07:55 | PDOC.OBPPN ---
FMR OB PN: Subj - Interval History Hospital Day: 4 Day: 1 Chief Complaint: 7/10 lower abd pain Indentification: 24 y/o dleivered via pLTC on 04/12/20 @ 0606 @ 38.4 wks Interval History: Pt has been doing well, walking around room, minimal lochia, pain 6-710 FMR OB PN: Obj - Maternal Vital signs: BP: [] HR: [] RR: [] Tmax: [] Pox: []% on [] Wt: [] - Urine output I&O: 04/12/20 04/13/20 04/14/20 06:59 06:59 06:59 Output Total 4373 Balance -4373 FMR OB PN: Data - Labs Lab results: Laboratory Results - last 24 hr 04/12/20 04/13/20 20:33 05:24 WBC 12.0 H 12.6 H RBC 3.50 L 3.35 L Hgb 9.9 L 9.2 L Hct 29.9 L 28.7 L MCV 85.3 85.6 MCH 28.4 27.4 MCHC 33.3 32.0 RDW 14.0 14.1 Plt Count 186 183 MPV 7.6 7.8 Neutrophils % 72.5 Lymphocytes % 20.9 L Monocytes % 5.5 Eosinophils % 0.9 Basophils % 0.2 Neutrophils # 8.7 H Lymphocytes # 2.5 Monocytes # 0.7 H Eosinophils # 0.1 Basophils # 0.0 FMR OB PN: A/P Discussion: Date/Time: 04/13/20 0753 This H&P was discussed with [] and [] who agree with the above documentation and plan.
--- NOTE | 2020-04-13 07:57 | PDOC.PP ---
Post Progress Note Post Day #: 1 Subjective: 24 y/o dleivered via pLTCs on 04/12/20 @ 0606 @ 38.4 wks pain lower abd 6-7/10 alleviated with pain meds. walking around well. urinating ok no bm, passing gas though. eating well. PO intake tolerated: yes Flatus: yes Ambulation: yes Vital Signs (12 hours) Temp Pulse Resp BP BP Pulse Ox 04/13/20 06:12 98.0 F 91 16 98/56 L 96 04/13/20 01:52 98.7 F 94 16 111/53 L 96 04/12/20 20:57 97.7 F 89 16 107/54 L 97 Weight Weight 152.861 kg - Physical Examination General: NAD Cardiovascular: no m/r/g, RRR Respiratory: clear to auscultation bilaterally, non-labored breathing Abdominal: + bowel sounds, lochia, no distention, appropriately TTP Extremities: negative homans (B) Skin: CS incision dry & intact (wound vac over incision, no drainage, clean and dry.), no rash Neurological: no gross focal deficits Psychiatric: A&Ox3, normal affect Result Diagrams: 04/13/20 05:24 Additional Labs: Post Labs Blood Type O POSITIVE 04/10/20 23:04 Hep Bs Antigen Non-Reactive S/CO (NonReactive) 04/10/20 23:05 - Assessment/Plan 2F delivered pLTCS @ 38.4 weeks after a failed mIOL, with nonreassuring FHT's and failure to dilate. 1. PP day #1 pLTCS - minimal lochia - continue pain management with norco - stool softener 2. HSV - No lesions on vaginal exam 3. Antiphospholipid Antibody Syndrome - Previously on Lovenox and ASA. - Lovenox continued 12 hr post op - continue ASA fo rlife 4. A1GDM - Diet-controlled 5. Hx of IUFD @ 26 weeks 6. Acute blood loss anemia post op - start po iron for 4-6 weeks. Dispo: plan d/c home tomorrow. continue pain management and bowel regimen. Addendum - Attending - Attending Attestation Date/Time: 04/13/20 1102 I personally evaluated the patient and discussed the management with Dr. Monroe. I agree with the History, Examination, Assessment and Plan documented above with any addition or exceptions noted below. Progressing well. Discussed with patient d/c home today vs tomorrow. She wants to see how this morning goes and will make a decision early this afternoon. Likely d/c tomorrow.
[2020-04-13] MEDS: Docusate Calcium (SURFAK) 240 MG CAP PO SCH ×2 (09:03→21:47)
[2020-04-13] MEDS: Ferrous Sulfate 325 MG TAB PO SCH ×2 (09:03→17:54)
[2020-04-13] MEDS: Prenatal Vitamin 1 TAB PO SCH (09:03)
[2020-04-13] MEDS: Aspirin 81 mg Enteric Coated Tablet PO SCH (09:03)
[2020-04-13] MEDS: Ibuprofen 800 MG TAB PO SCH ×2 (14:12→21:47)
[2020-04-13] MEDS: Enoxaparin Sodium 40 MG/0.4 ML SYRINGE SC SCH (17:54)
[2020-04-14] MEDS: HYDROcodone/Acetaminophen 5/325 mg Tablet PO PRN ×5 (04:18→20:51)
[2020-04-14] MEDS ORDERED: Morphine 4 MG/ML VIAL SLOW IVP SCH (05:30)
[2020-04-14] MEDS: Ibuprofen 800 MG TAB PO SCH ×3 (05:42→22:01)
[2020-04-14 05:53] LABS: #Basophils 0.2 thou/uL (0.0-0.2); #Eosinphils 0.2 thou/uL (0.0-0.7); #Lymphocytes 2.7 thou/uL (1.20-3.40); #Monocytes 0.4 thou/uL (0.11-0.59); #Neutrophils 9.7 thou/uL (1.40-6.50); %Basophils 1.3 % (0.0-1.0); %Eosinophils 1.6 % (0.0-10.0); %Lymphocytes 20.4 % (21.0-51.0); %Monocytes 3.2 % (0.0-10.0); %Neutrophils 73.5 % (42.0-75.0); Hemoglobin 9.5 g/dL (12.0-16.0); Mean Corpuscular HGB CONC 31.5 g/dL (32.0-36.0); Mean Corpuscular Hemoglobin 27.6 pg (27.0-31.0); Mean Corpuscular Volume 87.6 fL (78.0-98.0); Mean Platelet Volume 7.8 fL (7.4-10.4); Platelet Count 200 thou/uL (130-400); RBC Distribution Width 14.6 % (11.5-14.5); Red Blood Cell (RBC) Count 3.45 mill/uL (4.20-5.40); White Blood Cell (WBC) Count 13.2 thou/uL (4.8-10.8)
--- NOTE | 2020-04-14 07:44 | PDOC.PP ---
Post Progress Note Post Day #: 2 Subjective: Pt had acute overnight event of severe abd pain, located lower abdomen and radiating upward. Temp went up to 100.2 vitals otherwise stable pain still present. Pt is in severe pain and unable to get up out of bed this morning. She was given 4 mg morphine and still in severe pain. CTA ordered and taken, report pending. trying to use bedpan to urinate. Was able to get up and shower last night, moving around the room well. Flatus: yes Ambulation: yes (but unable to this mornign 2/2 pain) Vital Signs (12 hours) Temp Pulse Resp BP Pulse Ox 04/14/20 06:50 98.7 F 118 H 20 131/72 04/14/20 06:18 100.2 F H 04/14/20 04:52 105/56 L 04/14/20 04:49 98.4 F 102 H 20 98/53 L 99 04/14/20 04:18 98.2 F 106 H 14 120/59 L 98 04/14/20 00:43 98.0 F 107 H 14 127/60 95 Weight Weight 152.861 kg - Physical Examination Deviation from normal: moderate distress 2/2 pain Cardiovascular: RRR (with 2/6 systomic flow murmur over L sternal border) Respiratory: clear to auscultation bilaterally, non-labored breathing Abdominal: + bowel sounds, lochia, no distention Deviation from normal: perineal signs over diffuse abdomen, + guarding. Extremities: negative homans (B) Skin: no rash Deviation from normal: wound vac in place, no drainage from vac, clean and dry. Neurological: no gross focal deficits Psychiatric: A&Ox3, normal affect Result Diagrams: 04/14/20 05:34 Additional Labs: Post Labs Blood Type O POSITIVE 04/10/20 23:04 Hep Bs Antigen Non-Reactive S/CO (NonReactive) 04/10/20 23:05 - Assessment/Plan 4F delivered pLTCS @ 38.4 weeks after a failed mIOL, with nonreassuring FHT's and failure to dilate. 1. PP day #2 pLTCS - minimal lochia - continue pain management with norco, and fentanyl for breakthrough pain - stool softener, Po iron 2. Abd pain, suspect endometritis - DDX: endometritis vs thrombophlebitis - CTA abd pelvis report pending - Temp 100.2 F - Started on clinda + gent - fantanyl for breakthrough pain. 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 Antiphospholipid Antibody Syndrome - Previously on Lovenox and ASA. - Lovenox continued 12 hr post op - continue ASA for life 5. A1GDM - Diet-controlled, will repeat 3 hr gtt at 6 weeks pp 6. Hx of IUFD @ 26 weeks 7. Acute blood loss anemia post op - start po iron for 4-6 weeks. Dispo: d/c pending pain management and r/o infection vs clot. Stable, control pain. Addendum - Attending - Attending Attestation Date/Time: 04/14/20 9082 I personally evaluated the patient and discussed the management with Dr. Monroe. I agree with the History, Examination, Assessment and Plan documented above with any addition or exceptions noted below. CT negative for thrombus and free fluid. Will treat for endometritis and increase bowel regimen.
--- NOTE | 2020-04-14 07:51 | PDOC.BPN ---
- Brief Progress Note Called by the residents due to worsening pain. Patient was using the bathroom/moving around the room when she developed a sharper/deeper pain that radiated to her rectum with associated tremulousness. She appeared in no acute distress, was not diaphoretic or tremulous on my exam Her abd was soft, no guarding or gely peritoneal signs/negative bedshake Her wound vac was in place, c/d/i. Perhaps more tenderness around the incision I asked Dr. Johnson to evaluate for a second opinion. Ddx includes bleeding or expanding hematoma, clot due to APLS, delayed bowel/omental injury, although I feel the latter is unlikely. Will check CBC and CTA/V of abd/pelvis. No current indication to return to the OR. Appreciate Dr. Johnson's input.
--- NOTE | 2020-04-14 08:08 | CT ---
PRELIMINARY REPORT/[facility]/EMERGENCY AFTER HOURS PROCEDURE: EXAM: CTA Abdomen and Pelvis with Intravenous Contrast. CLINICAL HISTORY: NO PREVIOUS.. PT HAD A WITH INTENSE ABDOMINAL PAIN. THIS IS TO EVALUATE F OR THROMBUS; PER [facility] ASKED TO DO AN ANGIO FOLLOWED BY VENOUS. TECHNIQUE: Axial CTA images of the abdomen and pelvis with intravenous contrast. Three-dimensional AK P/volume rendered reformations were performed. CONTRAST: With; ISOVUE 370,100mL COMPARISON: None provided. FINDINGS: Limited by motion artifact. Large body habitus obesity. Patchy atelectasis in the posterio r lower lung zones.. The liver is mildly enlarged with diffuse hepatic steatosis. The gallbladder is moderately distended with possible sludge debris. The spleen is mildly enlarged at 15.5 cm. No a drenal mass seen. Kidneys without obstructive uropathy. Slight hazy motion artifact. No oral contrast. Fluid and fluid contents stomach scattered mildly prominent small bowel loops 2 cm range m ild ileus. Moderate stool volume throughout large bowel mild constipation. Sigmoid colon spasm. Stool in the rectal vault. Bladder is mildly distended. No obvious large stones seen. Emphysematous changes in the wall of the left paracentral anterior abdomen. Small free air droplets in the right lower anterior pelvis and with Emphysematous gas in the wall of the left mid to lower anterior wall midline incisional scar scattered subcutaneous gas. Postsurgical changes recent The enlarged heterogeneous uterus with gas droplets within the heterogeneously enlarged uterus. There is mid phase and delayed phase IV contrast acquisitions. Supposed arterial phase is not clearly angiographic phase. I see no evidence of portal vein splenic vein thrombosis. No evidence of celiac or SMA thrombus definitively however the phase acquisition is no truly angiographic. Some stranding around the uterus in the pelvis. IMPRESSION: Distended gallbladder with possible sludge debris. Postsurgical changes compatible with C -section. No definitive arterial or SMA thrombosis but angiographic phase not well accomplished. No portal or splenic vein thrombosis. No Definitive gonadal vein thrombosis ELECTRONICALLY SIGNED BY: Kaushal Torres II, MD Apr 14, 2020 7:46:36 AM CDT FINAL REPORT: CT ANGIOGRAM OF THE ABDOMEN AND PELVIS WITH AND WITHOUT CONTRAST: HISTORY: Abdominal pain. section. Evaluate for thrombosis. COMPARISON: None. TECHNIQUE: CT angiogram of the abdomen and pelvis is performed in the axial plane. Sagittal and coronal reformat enrique images are submitted for interpretation. FINDINGS: Abdomen CT: Dependent atelectatic changes in the lung bases. Hypoattenuation of the liver due to hepatic steatosis. No solid organ abnormality. No gastrohepatic, retrocrural or periportal lymphadenopathy. Symmetric enhancement kidneys. Bilaterally no obstructive uropathy. Subcutaneous emphysema and intramuscular emphysema along the anterior abdominal wall compatible with recent hysterectomy. No mesenteric mass, lymphadenopathy or free air. Trace amount of free fluid. Limited evaluation of the alimentary canal by the lack of contrast. No evidence of a bowel obstructio n. Normal ileocecal junction. Appendix is not appreciated. No secondary signs of appendicitis. Pelvic CT: Enlarged, heterogeneous uterus compatible with state. Pockets of emphysema/air likely repr esenting postsurgical change. There is a small amount of periuterine fluid. No evidence of abscess. CT ANGIOGRAM: Limited evaluation due to technique and phase of acquisition. There does not appear to be any evidenc e of vascular injury, leak or extravasation. Visualized venous structures do not demonstrate any evidence of thrombosis. IMPRESSION: 1. This report is in agreement with initial report by [facility]. 2. Postsurgical changes compatible with recent section. 3. No evidence of vascular occlusion. No evidence of contrast extravasation. Transcribed Date/Time: 04/14/2020 8:27 AM
[2020-04-14] MEDS: Fentanyl 100 MCG/2 ML VIAL SLOW IVP PRN ×2 (08:13→10:16)
[2020-04-14] MEDS: Aspirin 81 mg Enteric Coated Tablet PO SCH (08:16)
[2020-04-14] MEDS: Ferrous Sulfate 325 MG TAB PO SCH ×2 (08:16→16:29)
[2020-04-14] MEDS: Prenatal Vitamin 1 TAB PO SCH (08:16)
[2020-04-14] MEDS: Docusate Calcium (SURFAK) 240 MG CAP PO SCH ×2 (08:17→22:01)
[2020-04-14] MEDS: GENTAMICIN SULFATE IVPB SCH (08:47)
[2020-04-14] MEDS: SODIUM CHLORIDE 0.9% IVPB SCH (08:47)
[2020-04-14] MEDS ORDERED: Senokot 8.6 MG TAB PO PRN (10:42)
[2020-04-14] MEDS ORDERED: Senokot 8.6 MG TAB PO SCH (10:45)
[2020-04-14] MEDS ORDERED: Polyethylene Glycol 3350 17 GM Packet PO SCH (11:00)
[2020-04-14] MEDS ORDERED: Iopamidol-370 76% 500 ML 1 ML ONE (11:57)
[2020-04-14] MEDS: Clindamycin/D5W 900 MG in Premix Bag 1 BAG IVPB SCH ×2 (14:42→22:03)
[2020-04-14] MEDS ORDERED: Milk Of Magnesia 30 ML UDCUP PO PRN (17:03)
[2020-04-14] MEDS: Enoxaparin Sodium 40 MG/0.4 ML SYRINGE SC SCH (18:20)
[2020-04-15] MEDS: HYDROcodone/Acetaminophen 5/325 mg Tablet PO PRN ×3 (04:34→13:14)
[2020-04-15] MEDS: Clindamycin/D5W 900 MG in Premix Bag 1 BAG IVPB SCH (05:57)
[2020-04-15] MEDS: Ibuprofen 800 MG TAB PO SCH (05:57)
--- NOTE | 2020-04-15 06:23 | PDOC.PP ---
Post Progress Note Post Day #: 3 Subjective: Ms. Polk complains of subjective fever and chills through the night. She says her whole body is warm but last night she felt very cold and asked for an extra blanket. She reports her abdominal pain has improved and was walking the halls yesterday afternoon. She has had a bowel movement. PO intake tolerated: yes Flatus: yes Ambulation: yes Vital Signs (12 hours) Temp Pulse Resp BP Pulse Ox 04/15/20 06:03 99.1 F 04/15/20 04:35 116 H 96 04/14/20 20:27 98.6 F 111 H 20 122/84 94 L Weight Weight 152.861 kg - Physical Examination General: NAD Cardiovascular: RRR (with 2/6 systomic flow murmur over L sternal border) Respiratory: clear to auscultation bilaterally, non-labored breathing Abdominal: lochia, appropriately TTP Skin: CS incision dry & intact (scattered 2-3 cm red patches on lower abdomen and tops of thighs) Neurological: no gross focal deficits Psychiatric: A&Ox3, normal affect Result Diagrams: 04/14/20 05:34 Additional Labs: Post Labs Blood Type O POSITIVE 04/10/20 23:04 Hep Bs Antigen Non-Reactive S/CO (NonReactive) 04/10/20 23:05 - Assessment/Plan 2F delivered pLTCS @ 38.4 weeks after a failed mIOL, with nonreassuring FHT's and failure to dilate. 1. PP day #3 pLTCS - minimal lochia - continue pain management with norco, and fentanyl for breakthrough pain - stool softener, PO iron 2. Abd pain, suspect endometritis - CTA abd pelvis showed no evidence of thrombosis - Afebrile since 617 on 04/14, T-max 100.2 F - Started on clinda + gent yesterday - fentanyl for breakthrough pain. 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 Antiphospholipid Antibody Syndrome - Previously on Lovenox and ASA. - continue lovenox for 6 weeks - continue ASA for life 5. A1GDM - Diet-controlled, will repeat 3 hr gtt at 6 weeks pp 6. Hx of IUFD @ 26 weeks 7. Acute blood loss anemia post op - PO iron for 4-6 weeks. Dispo: d/c pending pain management. Stable, control pain. F/U Mon or Tues for wound vac removal. followup- 2 weeks. Addendum - Attending - Attending Attestation Date/Time: 04/15/20 1830 I personally evaluated the patient and discussed the management with Dr. Egan I agree with the History, Examination, Assessment and Plan documented above with any addition or exceptions noted below - Patient without complaints. States that pain is under much better control. Tolerating diet. Afebrile VSS. A/ P: 1) POD#3 s/p 1*C/S - dping well. Plan to d/c home today. 2) APS - will continue lovenox for 6 weeks .
[2020-04-15] MEDS: Docusate Calcium (SURFAK) 240 MG CAP PO SCH (08:18)
[2020-04-15] MEDS: Prenatal Vitamin 1 TAB PO SCH (08:18)
[2020-04-15] MEDS: Ferrous Sulfate 325 MG TAB PO SCH (08:18)
[2020-04-15] MEDS: Aspirin 81 mg Enteric Coated Tablet PO SCH (08:18)
[2020-04-15 08:27] VITALS: BP 98/53; TEMP 98.7
[2020-04-15] MEDS ORDERED: Polyethylene Glycol 3350 17 GM Packet PO SCH (09:00)
[2020-04-15] MEDS: SODIUM CHLORIDE 0.9% IVPB SCH (09:04)
[2020-04-15] MEDS: GENTAMICIN SULFATE IVPB SCH (09:04)
== END 2020-04-15 14:00 | disposition home or self-care (01) | DRG 787 ==
LOC: L&D-LIB 20:38 → L&D 22:42 → 3SE 04-12 09:11
PROVIDERS: ADMIT Emergency Medicine; ATTEND Emergency Medicine
PROC: 3E0P7VZ Introduction of Hormone into Female Reproductive, Via Natural or Artificial Opening (ICD-10-PCS; 2020-04-10)
PROC: 3E033VJ Introduction of Other Hormone into Peripheral Vein, Percutaneous Approach (ICD-10-PCS; 2020-04-10)
PROC: 10907ZC Drainage of Amniotic Fluid, Therapeutic from Products of Conception, Via Natural or Artificial Opening (ICD-10-PCS; 2020-04-11)
PROC: 10H07YZ Insertion of Other Device into Products of Conception, Via Natural or Artificial Opening (ICD-10-PCS; 2020-04-11)
PROC: 4A1HXFZ Monitoring of Products of Conception, Cardiac Rhythm, External Approach (ICD-10-PCS; 2020-04-11)
PROC: 10D00Z1 Extraction of Products of Conception, Low, Open Approach (ICD-10-PCS; principal; 2020-04-12)
DX: O24.420 Gestational diabetes mellitus in childbirth, diet controlled (principal); O99.12 Other diseases of the blood and blood-forming organs and certain disorders involving the immune mechanism complicating childbirth; D68.61 Antiphospholipid syndrome; O98.52 Other viral diseases complicating childbirth; E71.120 Methylmalonic acidemia; O86.12 Endometritis following delivery; D62 Acute posthemorrhagic anemia; O99.214 Obesity complicating childbirth; E66.9 Obesity, unspecified; O36.63X0 Maternal care for excessive fetal growth, third trimester, not applicable or unspecified; B00.9 Herpesviral infection, unspecified; O99.283 Endocrine, nutritional and metabolic diseases complicating pregnancy, third trimester; O90.81 Anemia of the puerperium; O76 Abnormality in fetal heart rate and rhythm complicating labor and delivery; Z37.0 Single live birth; Z3A.38 38 weeks gestation of pregnancy; Z86.19 Personal history of other infectious and parasitic diseases; Z87.891 Personal history of nicotine dependence; Z79.899 Other long term (current) drug therapy; Z79.01 Long term (current) use of anticoagulants; Z79.82 Long term (current) use of aspirin
CPT/HCPCS: 36415; 36416; 74174; 85025; 85027; 86780; 86850; 86900; 86901; 87340; J0456; J0670; J0690; J1100; J1580; J1650; J1885; J2001; J2210; J2270; J2274; J2405; J2590; J3010; J3490; S0020